=== PATIENT | female | born 1935 | race Caucasian/White ===

== ENCOUNTER → 2016-06-23 | Outpatient (CLI) | payer BC ==
[~2016-06-23] MED LIST: ASPCH81X PO; CALC500C70 PO; CETI10TA84 PO; CHOL1000 PO; GLUC10007 PO; LEVO88TA PO; LISI-461 PO; METO1TAB70 PO; OMEG10007 PO
[2016-06-23 14:28] VITALS: BP 142/74; PULSE 56; TEMP 36.6; O2SAT 96
--- NOTE | 2016-06-23 15:15 | Radiation Oncology Follow-Up ---
Radiation Oncology Follow-Up Date of Visit Jun 23, 2016. (Sarah Lacey PA-C) Reason For Visit One-month follow-up and cancer survivorship care plan (Sarah Lacey PA-C) Radiation Completion Date Had 3 HDR treatments, last one 05-26-2016 (Sarah Lacey PA-C) Diagnosis (1) Endometrial adenocarcinoma Status: Resolved Onset Date: 02/08/2016 Stage: l Permanent Comment: STAGING: FIGO Grade 1, FIGO stage IB TREATMENT: 1. Biopsy - 02/08/2016 - Dr. Darling 2. TAHBSO - 03/03/2016 - Dr. Chow 3. Status post completion of radiation therapy. 3 HDR treatments 700 cGy each. Treatment was completed 05/26/2016 Last Edited By: Sarah Lacey on Jun 10:38 (Sarah Lacey PA-C) History of Present Illness Ms. Vaughan is an 80-year-old female who recently presented with postmenopausal bleeding. She was referred to Dr. Darling who who saw the patient in consultation 02/08/2016 and performed a pelvic examination which is essentially negative. At the time of the visit, Dr. Darling performed an office procedure and did do a endometrial suction curette. 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 The patient was referred to Dr. Chow who did recommend a total abdominal hysterectomy and bilateral salpingo-oophorectomy with pelvic lymph node sampling. The patient went to the operating room on 03/03/2016 for a VERONIKA/BSO and bilateral pelvic lymph node sampling. Pathology revealed endometrioid adenocarcinoma that was FIGO grade 1 and involved more than 50% of the myometrium making it FIGO stage IB. There was no evidence of serosal extension or lymphovascular space invasion. The peritoneal fluid in washings were negative for malignancy. The ovaries and fallopian tubes are also negative. 7 lymph nodes were examined and all of them were negative. The cervix was not involved with cancer. We are now seeing the patient in consultation to discuss the role of adjuvant radiation therapy. Overall, the patient is doing relatively well. She denies any further vaginal bleeding. She has no other complaints. The patient was treated with HDR therapy. She had 3 treatments. He treatment was 700 cGy. Treatment was completed 05/26/2016 (Sarah Lacey PA-C) Interim History She has been doing well over the past month. She denies any changes in urination. She did have intermittent loose bowels during and after treatment. This is steadily improving. She does not require any [id number] medication to help with the loose bowel movements. She has had occasional mild suprapubic discomfort. This has resolved. She had no nausea. She has had no vaginal discharge and no vaginal bleeding. (Sarah Lacey PA-C) Allergies Coded Allergies: Sulfa Drugs (Unverified Allergy, Severe, SEVERE RASH AND SWELLING TO FACE AND EYES, 06/05/09) Tixocortol (Verified Allergy, Severe, RASH, 05/04/16) Aspartame (Unverified Allergy, Mild, 06/05/09) Home Medications Scheduled Aspirin (Aspirin Chewable), 81 MG PO DAILY Calcium/Vitamin D (Os-Michael 500 Plus D), 2 TAB PO DAILY Cetirizine (Zyrtec), 10 MG PO DAILY Cholecalciferol (Vitamin D3), 2 TAB PO DAILY Fish Oil ([place]-3), 1 CAP PO DAILY Glucosamine Sulfate (Glucosamine), 1,000 MG PO DAILY Levothyroxine Sodium (Synthroid), 1 TAB PO DAILY Lisinopril (Zestril), 10 MG PO DAILY Metoprolol Succinate (Toprol Xl), 1 TAB PO DAILY Review of Systems Gastrointestinal: Symptoms: Diarrhea GI Comments: occ diarrhea Oral: Symptoms: No Problems Respiratory: Symptoms: WNL Urinary: Symptoms: Incontinence Comments: "incontinent all the time denies pain or burning " Skin: Symptoms: No Problems (Sarah Lacey PA-C) Physical Exam Vital Signs Date Time Temp Pulse Resp B/P Pulse Ox O2 Delivery O2 Flow Rate FiO2 06/23/16 14:28 36.6 56 20 142/74 96 Pain: Side: Bilateral Patient Pain Scale: 0 - 10 Initial Pain Intensity: 0.0 Fatigue: None General Appearance: no apparent distress Eyes: normal inspection, EOMI ENT: normal ENT inspection, hearing grossly normal Neck: no adenopathy, thyroid normal Respiratory/Chest: lungs clear, no respiratory distress, no accessory muscle use Cardiovascular: regular rate, rhythm, no gallop, no murmur Abdomen: non tender, soft Genitourinary - Female: Deferred is seeing Dr. Chow in 2 weeks. Neurologic/Psychiatric: no motor/sensory deficits, alert, normal mood/affect Skin: warm/dry (Sarah Lacey PA-C) Assessment & Plan Plan: The patient is also seen today by Dr. Zavaleta. She has a follow-up appointment scheduled with Dr. Chow. We previously gave her a vaginal dilator. This was given at the time of her initial pelvic examination. She has been instructed to begin using the vaginal dilator. She should use this twice a week for 10 minutes. We asked her to return to our office in 6 months. Today we completed a cancer survivorship care plan. A copy of the document was given to the patient. She was given a survivorship booklet. She will call our office if she has any questions or concerns in the interim. (Sarah Lacey PA-C) I agree with note created by Sarah Lacey PA-C. I reviewed the patient's chart and information with her. I have examined and evaluated the patient. I reviewed relevant clinical information and answered the patient's and/or family' s questions. (Veeral. Zavaleta MD) Total Time In Follow-Up I spent 20 minutes speaking to the patient performing examination. I spent 20 minutes reviewing information, preparing the survivorship document, and completing this note. (Sarah Lacey PA-C) I spent 15 minutes examining and counseling the patient. (Veeral. Zavaleta MD) Copy To Gadiel Woodard M.D.; Jarvis Chow M.D.; Tee Carranza M.D.
== END | disposition home or self-care (01) ==
LOC: C.ONC 14:18
PROVIDERS: ATTEND Radiology Radiation Oncology
DX: Z08 Encounter for follow-up examination after completed treatment for malignant neoplasm (principal); Z92.3 Personal history of irradiation; Z87.898 Personal history of other specified conditions

== ENCOUNTER → 2016-09-29 | Outpatient (CLI) | payer BC ==
[~2016-09-29] MED LIST changes: +METO-648 PO; -METO1TAB70 PO
--- NOTE | 2016-09-29 16:18 | MAMMOGRAPHY REPORT ---
BILATERAL DIGITAL SCREENING MAMMOGRAM WITH CAD: 09/29/2016 CLINICAL HISTORY: Routine screening. Patient has no complaints. TECHNIQUE: Current study was also evaluated with a Computer Aided Detection (CAD) system. Bilateral CC and MLO views were obtained. COMPARISON: Comparison is made to exams dated: 09/29/2015 mammogram, 09/25/2014 mammogram, 09/24/2013 m ammogram, 09/20/2012 mammogram, 09/20/2011 mammogram, and 09/16/2010 mammogram - [facility] enter. BREAST COMPOSITION: There are scattered areas of fibroglandular density in both breasts. FINDINGS: No suspicious masses, calcifications, or areas of architectural distortion are noted in ei ther breast. There has been no significant interval change compared to prior exams. Bilateral benign appearing calcifications are not significantly changed. IMPRESSION: ACR BI-RADS CATEGORY 2: BENIGN There is no mammographic evidence of malignancy. A 1 year screening mammogram is recommended. The pa tient will receive written notification of the results. Approximately 10% of breast cancers are not detected with mammography. A negative mammographic report should not delay biopsy if a clinically suggestive mass is present. Natalie Kumar M.D. ah/:09/29/2016 14:50:01 Rehabilitation Technician: Sasha SOOD(Henry)(Alina)([place]), [facility] letter sent: Normal 1/2 BI-RADS Code: ACR BI-RADS Category 2: Benign
== END | disposition home or self-care (01) ==
LOC: C.MAMM 13:01
PROVIDERS: ATTEND Family Medicine
DX: Z12.31 Encounter for screening mammogram for malignant neoplasm of breast (principal)

== ENCOUNTER → 2017-01-24 | Outpatient (CLI) | payer BC ==
[~2017-01-24] MED LIST changes: -METO-648 PO; +METO1TAB70 PO
[2017-01-24 13:09] VITALS: BP 140/84; PULSE 59; TEMP 36.6; O2SAT 96
--- NOTE | 2017-01-24 14:12 | Radiation Oncology Follow-Up ---
Radiation Oncology Follow-Up Date of Visit Jan 24, 2017. Reason For Visit 6 month follow-up Radiation Completion Date 05/26/16 HDR Diagnosis (1) Endometrial adenocarcinoma Status: Resolved Onset Date: 02/08/2016 Stage: l Permanent Comment: STAGING: FIGO Grade 1, FIGO stage IB TREATMENT: 1. Biopsy - 02/08/2016 - Dr. Darling 2. TAHBSO - 03/03/2016 - Dr. Chow 3. Status post completion of radiation therapy. 3 HDR treatments 700 cGy each. Treatment was completed 05/26/2016 Last Edited By: Sarah Lacey on Jun 10:38 History of Present Illness Ms. Vaughan is an 80-year-old female who recently presented with postmenopausal bleeding. She was referred to Dr. Darling who who saw the patient in consultation 02/08/2016 and performed a pelvic examination which is essentially negative. At the time of the visit, Dr. Darling performed an office procedure and did do a endometrial suction curette. 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 The patient was referred to Dr. Chow who did recommend a total abdominal hysterectomy and bilateral salpingo-oophorectomy with pelvic lymph node sampling. The patient went to the operating room on 03/03/2016 for a VERONIKA/BSO and bilateral pelvic lymph node sampling. Pathology revealed endometrioid adenocarcinoma that was FIGO grade 1 and involved more than 50% of the myometrium making it FIGO stage IB. There was no evidence of serosal extension or lymphovascular space invasion. The peritoneal fluid in washings were negative for malignancy. The ovaries and fallopian tubes are also negative. 7 lymph nodes were examined and all of them were negative. The cervix was not involved with cancer. We are now seeing the patient in consultation to discuss the role of adjuvant radiation therapy. Overall, the patient is doing relatively well. She denies any further vaginal bleeding. She has no other complaints. The patient was treated with HDR therapy. She had 3 treatments. He treatment was 700 cGy. Treatment was completed 05/26/2016 Interim History She been doing well over the past 6 months. She denies any vaginal discharge or bleeding. She does have an issue with urinary incontinence and chafing. She has a cream prescribed by the media monitor but has not been using this on a regular basis. She denies any pelvic pressure or pain. There is been no change in urinary habits or bowel habits. We discussed follow-up. She had not seen Dr. Chow since July. She stated due to difficulty with transportation and length of travel she did not wish to continue follow-up in [place]. She has not been using the vaginal dilator on a regular basis. Allergies Coded Allergies: Sulfa Drugs (Unverified Allergy, Severe, SEVERE RASH AND SWELLING TO FACE AND EYES, 06/05/09) Tixocortol (Verified Allergy, Severe, RASH, 05/04/16) Aspartame (Unverified Allergy, Mild, 06/05/09) Home Medications Scheduled Aspirin (Aspirin Chewable), 81 MG PO DAILY Calcium/Vitamin D (Os-Michael 500 Plus D), 2 TAB PO DAILY Cetirizine (Zyrtec), 10 MG PO DAILY Cholecalciferol (Vitamin D3), 2 TAB PO DAILY Fish Oil ([place]-3), 1 CAP PO DAILY Glucosamine Sulfate (Glucosamine), 1,000 MG PO DAILY Levothyroxine Sodium (Synthroid), 1 TAB PO DAILY Lisinopril (Zestril), 10 MG PO DAILY Metoprolol Succinate (Toprol Xl), 1 TAB PO DAILY Review of Systems Gastrointestinal: Symptoms: Diarrhea GI Comments: diarrhea intermet feels may be when eats fatty foods Oral: Symptoms: No Problems Respiratory: Symptoms: SOB With Exertion Urinary: Symptoms: Incontinence Comments: urinary incont increased Skin: Symptoms: No Problems Physical Exam Vital Signs Date Time Temp Pulse Resp B/P (MAP) Pulse Ox O2 Delivery O2 Flow Rate FiO2 01/24/17 13:09 36.6 59 20 140/84 96 Pain: Side: Bilateral Patient Pain Scale: 0 - 10 Initial Pain Intensity: 0.0 Fatigue: None General Appearance: no apparent distress Eyes: normal inspection, EOMI ENT: normal ENT inspection, hearing grossly normal Neck: no adenopathy, thyroid normal Respiratory/Chest: lungs clear, no respiratory distress, no accessory muscle use Cardiovascular: regular rate, rhythm, no gallop, no JVD Abdomen: non tender, soft, no organomegaly Genitourinary - Female: There is erythema in the skin folds with chafing at the introitus. There is foreshortening of the vagina with telangiectasia, post radiation changes. There are no visible or palpable lesions of the vagina. Bimanual examination revealed no tenderness. This is difficult to assess due to the large body habitus. Anal / Rectum: Normal sphincter tone. No rectal masses and no rectal bleeding. Neurologic/Psychiatric: no motor/sensory deficits, alert, normal mood/affect Skin: warm/dry Assessment & Plan Plan: I've asked her to continue regular use of the vaginal dilator. She'll use this for 10 minutes twice a week. We'll arrange for her to see a local media monitor in 6 months. We asked her to return to our office in 1 year. She may call if she has any questions or concerns in the interim. Total Time In Follow-Up I spent 20 minutes speaking to the patient performing his examination. I spent 15 minutes reviewing information completing this note. Copy To Juanita Remy D.O.; Tee Carranza M.D.
== END | disposition home or self-care (01) ==
LOC: C.ONC 13:00
PROVIDERS: ATTEND Physician Assistant Medical
DX: Z08 Encounter for follow-up examination after completed treatment for malignant neoplasm (principal); Z92.3 Personal history of irradiation; Z85.42 Personal history of malignant neoplasm of other parts of uterus

== ENCOUNTER 2023-06-07 23:38 | Observation (INO) ==
--- NOTE | 2023-06-08 00:15 | Emergency Department Note ---
History of Present Illness General Chief complaint: Neuro Symptoms/Deficit Stated complaint: SLURRED SPEECH ON AND OFF, FUZZY IN HEAD Time Seen by Provider: 06/08/23 00:03 Source: patient and family History of Present Illness Provider complaint: Slurred speech Onset (ago): hour(s) (1.5) 87-year-old female presents emergency department for slurred speech. Patient [place] any falls. Patient on blood thinners. Patient's symptoms began 1.5 hours ago at 2230 according to family. Home Medications Medication Instructions Recorded Confirmed Type levothyroxine 88 mcg tablet 88 mcg PO QAM 02/22/19 06/08/23 History lisinopril 10 mg tablet 10 mg PO DAILY 02/22/19 06/08/23 History metoprolol succinate 200 mg 50 mg PO DAILY 03/03/22 06/08/23 History tablet,extended release 24 hr amlodipine 2.5 mg tablet 2.5 mg PO DAILY 03/07/23 06/08/23 History cetirizine 10 mg tablet (Zyrtec) 10 mg PO DAILY 06/08/23 06/08/23 History rosuvastatin 10 mg tablet 10 mg PO HS 06/08/23 06/08/23 History spironolactone 25 mg tablet 12.5 mg PO DAILY 06/08/23 06/08/23 History Allergies Allergy/AdvReac Type Severity Reaction Status Date / Time Sulfa (Sulfonamide Allergy Severe SEVERE Verified 06/08/23 01:26 Antibiotics) RASH AND SWELLING TO FACE AND EYES tixocortol Allergy Severe RASH Verified 06/08/23 01:26 aspartame Allergy Unknown Unknown Verified 06/08/23 01:26 Past Med/Surg History Medical History Hypothyroidism Hypertension Family History Other No pertinent family history in first degree relatives Social History Smoking Status: Former smoker Preferred Language: Nigerien Beliefs That Will Affect Care: None Feels Safe at Home: Yes Physical Exam Vital Signs Vital Signs - 24 hr 06/07/23 23:50 06/07/23 23:53 06/08/23 00:36 Temperature 37.0 C Temperature Source Oral Pulse Rate 75 78 Pulse Rate [Apical] 81 Respiratory Rate 16 16 Blood Pressure 161/79 H Blood Pressure [Left Arm] 159/69 H Blood Pressure Mean 106 Blood Pressure Mean [Left Arm] 99 Pulse Oximetry 98 98 Oxygen Delivery Method Room Air Room Air Sepsis Recent Fever Within 48 Hours No Sepsis New/Unexplained Change in Mental Status No Sepsis Action Taken by Nursing No Action Required 06/08/23 01:44 Temperature Temperature Source Pulse Rate Pulse Rate [Apical] 85 Respiratory Rate 18 Blood Pressure Blood Pressure [Left Arm] 167/84 H Blood Pressure Mean Blood Pressure Mean [Left Arm] 111 Pulse Oximetry 98 Oxygen Delivery Method Room Air Sepsis Recent Fever Within 48 Hours Sepsis New/Unexplained Change in Mental Status Sepsis Action Taken by Nursing Physical Exam GENERAL: She is oriented to person, place, and time. She appears well-developed and well-nourished. She does not appear distressed. HENT: Exam performed. -Head: Normocephalic and atraumatic. EYES: Conjunctivae and EOM are normal. Pupils are equal, round, and reactive to light. Right eye exhibits no discharge. Left eye exhibits no discharge. No scleral icterus. NECK: Normal range of motion. Neck supple. No JVD present. CV: Normal rate, regular rhythm, normal heart sounds and intact distal pulses. There is no peripheral edema. Palpable radial pulses bue. PULM/CHEST: Effort normal and breath sounds normal. No respiratory distress. No stridor. She has no wheezes. She has no rales. NEURO: NIHSS: 1 (10:1) Course Course 0003: The patient was evaluated in room B10. A complete history and physical exam was performed Cardiac monitoring: An order was placed for continuous cardiac monitoring. The monitor shows a rate of 80 with sinus rhythm interpreted by me NIHSS: 1. Patient is within the window for TNK and family states that her speech appears different than in the past. Code stroke called. 0020: Spoke with Dr. José Luis Morris telestroke who will evaluate the patient. 0054: Received a call from [employer] saying that the CT of the head and CTA of the head was negative. Received a call from Dr. José Luis Morris telemetry read who states that the patient's symptoms have resolved. She recommends an echo and an MRI and to be watched overnight. Patient will be admitted to the [facility] hospitalist team. Administered Medications Discontinued Medications Ioversol (Optiray 320 125ml) 125 ml IV ONCE ONE Stop: 06/08/23 00:26 Last Admin: 06/08/23 00:25 Dose: 116 ml Documented By: BONNIE Medical Decision Making Laboratory Data Attestation: I reviewed the patient's lab results. 06/08/23 00:17 06/08/23 00:17 Lab Results 06/07/23 06/08/23 06/08/23 Range/Units 23:59 00:17 00:21 WBC 7.23 (4.8-10.8) K/ul RBC 4.01 L (4.20-5.40) M/uL Hgb 12.0 (12.0-16.0) g/dl POC Hgb 11.9 L (12.0-16.0) g/dl Hct 36.2 L (37.0-47.0) % POC Hct 35 L (37-47) % MCV 90.3 (80.0-100.0) fL MCH 29.9 (25.0-34.0) pg MCHC 33.1 (32.0-36.0) g/dL RDW Std Deviation 41.7 (36.4-46.3) fL RDW Coeff of Ajay 12.7 (11.5-14.5) % Plt Count 183 (130-400) K/uL MPV 11.5 (9.4-12.4) fL Immature Gran % (Auto) 0.3 % Neut % (Auto) 54.3 % Lymph % (Auto) 27.7 % Mason % (Auto) 11.8 % Eos % (Auto) 5.5 % Baso % (Auto) 0.4 % Neut # (Auto) 3.93 (1.40-6.50) K/uL Lymph # (Auto) 2.00 (1.20-3.40) K/uL Mason # (Auto) 0.85 H (0.11-0.59) K/uL Eos # (Auto) 0.40 (0.00-0.50) K/uL Baso # (Auto) 0.03 (0.00-0.20) K/uL Immature Gran # (Auto) 0.02 (0.01-0.20) K/uL PT 11.1 (9.0-12.0) Seconds INR 1.0 (0.9-1.1) APTT 29 (21-31) Seconds PTT Ratio 1.0 POC Sodium 142 (135-144) mmol/L Sodium 140 (136-145) mmol/L POC Potassium 4.3 (3.3-5.0) mmol/L Potassium 4.3 (3.5-5.1) mmol/L POC Chloride 106 (101-112) mmol/L Chloride 107 (98-107) mmol/L Carbon Dioxide 23 (21-32) mmol/L POC Total CO2 23 L (24-31) mmol/L Anion Gap 10 (3-11) POC Anion Gap 18.0 (16-25) mmol/L POC BUN 35 H (7-18) mg/dl BUN 39 H (6-23) mg/dl Creatinine 1.23 H (0.6-1.2) mg/dl POC Creatinine 1.2 (0.6-1.3) mg/dl Est Cr Clr Drug Dosing 36.1 ml/min Est GFR ( Amer) 45.0 ml/min Est GFR (Non-Af Amer) 38.9 ml/min BUN/Creatinine Ratio 31.7 H (10-20) Glucose 129 H (70-99(Fasting)) mg/dl POC Glucose 123 H (70-99) mg/dl POC Glucose (other) 132 H (70-99) mg/dl Calcium 9.0 (8.6-10.3) mg/dl POC Ioniz Calcium Trena 1.19 (1.12-1.32) mmol/l Magnesium 1.7 (1.7-2.4) mg/dl Total Bilirubin 0.4 (0.2-1.0) mg/dl AST 14 (13-39) U/L ALT 11 (7-52) U/L Alkaline Phosphatase 44 (34-104) U/L Troponin I High Sens 3.9 (0-14) pg/ml Total Protein 6.9 (6.0-8.3) gm/dl Albumin 4.2 (3.4-5.0) gm/dl Globulin 2.7 (2.5-4.0) gm/dl Albumin/Globulin Ratio 1.6 (0.9-2) Blood Type O Positive Antibody Screen NEGATIVE Imaging Data Radiologist's Impression: Head CT 06/08/23 00:03 CR Exam(s): CT HEAD Without Contrast EXAM: CT Head Without Intravenous Contrast CLINICAL HISTORY: Reason for exam: neuro deficit, acute stroke suspected. TECHNIQUE: Axial computed tomography images of the head/brain without intravenous contrast. CTDI is 37.69 mGy and DLP is 624.41 mGy-cm. Automated exposure control was utilized for the study. A dose lowering technique was utilized adhering to the principles of ALARA. COMPARISON: No relevant prior studies available. FINDINGS: No acute intracranial hemorrhage. No midline shift or mass effect. The territorial [place]-white matter differentiation is maintained throughout. Age-related cerebral volume loss. Periventricular and subcortical white matter hypoattenuation, consistent with chronic microangiopathy. The visualized orbits appear grossly unremarkable. The calvarium is intact. The visualized paranasal sinuses and mastoid air cells are grossly clear. IMPRESSION: No acute intracranial hemorrhage, midline shift, or mass effect. Communications: Call Doctor Stroke Electronically signed by: Jori Aguayo MD 06/08/23 00:50 AM Head CTA 06/08/23 00:03 CR Exam(s): CTA HEAD With Contrast IV Amt: 116 ML OPTIRAY 320 EXAM: CT Angiography Head With Intravenous Contrast CLINICAL HISTORY: Reason for exam: neuro deficit, acute stroke suspected. TECHNIQUE: Axial computed tomographic angiography images of the head with intravenous contrast. CTDI is 29 mGy and DLP is 491 mGy-cm. Automated exposure control was utilized for the study. A dose lowering technique was utilized adhering to the principles of ALARA. MIP reconstructed images were created and reviewed. CONTRAST: Patient received 116 ML OPTIRAY 320 of IV contrast COMPARISON: No relevant prior studies available. FINDINGS: Right internal carotid artery: No acute findings. Intracranial segment is patent with no significant stenosis. No aneurysm. Right anterior cerebral artery: Unremarkable. No occlusion or significant stenosis. No aneurysm. Right middle cerebral artery: Unremarkable. No occlusion or significant stenosis. No aneurysm. Right posterior cerebral artery: Unremarkable. No occlusion or significant stenosis. No aneurysm. Left internal carotid artery: No acute findings. Intracranial segment is patent with no significant stenosis. No aneurysm. Left anterior cerebral artery: Unremarkable. No occlusion or significant stenosis. No aneurysm. Left middle cerebral artery: Unremarkable. No occlusion or significant stenosis. No aneurysm. Left posterior cerebral artery: Unremarkable. No occlusion or significant stenosis. No aneurysm. IMPRESSION: No large vessel occlusion. Communications: Call Doctor Stroke Electronically signed by: Jori Aguayo MD 06/08/23 00:52 AM Neck CTA 06/08/23 00:03 CR Exam(s): CTA NECK With Contrast IV Amt: 116 ML OPTIRAY 320 EXAM: CT Angiography Neck With Intravenous Contrast CLINICAL HISTORY: Reason for exam: neuro deficit, acute stroke suspected. TECHNIQUE: Routine carotid CT angiography protocol was performed with intravenous contrast. NASCET criteria using the distal ICAs for comparison were used for evaluation of stenoses. CTDI is 13.27 mGy and DLP is 491.61 mGy-cm. Automated exposure control was utilized for the study. A dose lowering technique was utilized adhering to the principles of ALARA. MIP reconstructed images were created and reviewed. CONTRAST: Patient received 116 ML OPTIRAY 320 of IV contrast COMPARISON: None. FINDINGS: VASCULATURE: Right common carotid artery: Unremarkable. No occlusion or significant stenosis. No dissection. Right internal carotid artery: Unremarkable. Extracranial segment is patent with no occlusion or significant stenosis. No dissection. Right external carotid artery: Unremarkable. No occlusion. Right vertebral artery: Unremarkable. No occlusion or significant stenosis. No dissection. Left common carotid artery: Unremarkable. No occlusion or significant stenosis. No dissection. Left internal carotid artery: Unremarkable. Extracranial segment is patent with no occlusion or significant stenosis. No dissection. Left external carotid artery: Unremarkable. No occlusion. Left vertebral artery: Unremarkable. No occlusion or significant stenosis. No dissection. NECK: Bones/joints: Moderate to advanced disc degeneration at C4-5, C5-6 and C6-7 with mild spinal canal stenosis at C5-6. Numerous dental caries. Recommend dental consult. No acute fracture. Soft tissues: Prominent mediastinal lymph nodes. Lung apices: Bronchitis, which may be infectious or inflammatory etiologies. CAROTID STENOSIS REFERENCE USING NASCET CRITERIA: % ICA stenosis = (1 - narrowest ICA diameter/diameter of distal cervical ICA) x 100. Mild - <50% stenosis. Moderate - 50-69% stenosis. Severe - 70-94% stenosis. Near occlusion - 95-99% stenosis. Occluded - 100% stenosis. IMPRESSION: Negative CTA neck. Communications: Verify Receipt Call Doctor Stroke Electronically signed by: An Okeefe MD 06/08/23 01:40 AM ECG Data Attestation: I personally reviewed and interpreted this ECG as follows: Rate (beats per minute): 83 Rhythm: + normal sinus ECG Intervals/blocks: + Normal MT and + Normal QT-c ECG ST segments: + Normal ST segments Additional Comments: QRS 84 MDM Narrative 0003: The patient was evaluated in room B10. A complete history and physical exam was performed Cardiac monitoring: An order was placed for continuous cardiac monitoring. The monitor shows a rate of 80 with sinus rhythm interpreted by me NIHSS: 1. Patient is within the window for TNK and family states that her speech appears different than in the past. Code stroke called. 0020: Spoke with Dr. José Luis Morris telestroke who will evaluate the patient. 0054: Received a call from [employer] saying that the CT of the head and CTA of the head was negative. Received a call from Dr. José Luis Morris telemetry read who states that the patient's symptoms have resolved. She recommends an echo and an MRI and to be watched overnight. Patient will be admitted to the [facility] hospitalist team. Impression & Plan Dysarthria, Stroke-like symptoms Discharge Plan Visit Data Chief Complaint: Neuro Symptoms/Deficit Stated Complaint: SLURRED SPEECH ON AND OFF, FUZZY IN HEAD ED Provider: Ash Ayoub Discharge Problem: Dysarthria, Stroke-like symptoms Patient Disposition: Being Evaluated by Hospitalist Forms Stand Alone Forms: My [facility] Prescriptions Prescriptions: No Action amlodipine 2.5 mg tablet 2.5 mg PO DAILY levothyroxine 88 mcg tablet 88 mcg PO QAM lisinopril 10 mg tablet 10 mg PO DAILY metoprolol succinate 200 mg tablet extended release 24 hr 50 mg PO DAILY cetirizine [Zyrtec] 10 mg Tablet 10 mg PO DAILY spironolactone 25 mg tablet 12.5 mg PO DAILY rosuvastatin 10 mg tablet 10 mg PO HS Referrals Referrals: Tee Carranza MD [Primary Care Provider] -
[2023-06-08] MEDS: OPTIRAY 320 125ml IV ONE (00:25)
[2023-06-08 00:34] LABS: iSTAT Creatinine 1.2 mg/dl (0.6-1.3); iSTAT Hemoglobin 11.9 g/dl (12.0-16.0); iSTAT Ionized Calcium 1.19 mmol/l (1.12-1.32); iSTAT Potassium 4.3 mmol/L (3.3-5.0)
[2023-06-08 00:35] LABS: Basophils # (auto) 0.03 K/uL (0.00-0.20); Basophils % (auto) 0.4 %; Eosinophils % (auto) 5.5 %; Hematocrit (blood only) 36.2 % (37.0-47.0); Immature Granulocytes # (auto) 0.02 K/uL (0.01-0.20); Immature Granulocytes % (auto) 0.3 %; Lymphocytes % (auto) 27.7 %; Mean Corpuscular Hemoglobin 29.9 pg (25.0-34.0); Mean Corpuscular Hgb Conc 33.1 g/dL (32.0-36.0); Mean Corpuscular Volume 90.3 fL (80.0-100.0); Mean Platelet Volume 11.5 fL (9.4-12.4); Monocytes # (auto) 0.85 K/uL (0.11-0.59); Monocytes % (auto) 11.8 %; Neutrophils # (auto) 3.93 K/uL (1.40-6.50); Neutrophils % (auto) 54.3 %; Platelet Count 183 K/uL (130-400); RDW Coefficient of Variation 12.7 % (11.5-14.5); RDW Standard Deviation 41.7 fL (36.4-46.3); Red Blood Count 4.01 M/uL (4.20-5.40); White Blood Count 7.23 K/ul (4.8-10.8)
[2023-06-08 00:50] LABS: Albumin Globulin Ratio 1.6 (0.9-2); Albumin Level 4.2 gm/dl (3.4-5.0); BUN Creatinine Ratio 31.7 (10-20); Bilirubin,Total 0.4 mg/dl (0.2-1.0); Creatinine Clr Calc Pharmacy 36.1 ml/min; Est GFR (Non-African American) 38.9 ml/min; Globulin 2.7 gm/dl (2.5-4.0); Magnesium 1.7 mg/dl (1.7-2.4); Potassium 4.3 mmol/L (3.5-5.1); Total Protein 6.9 gm/dl (6.0-8.3)
--- NOTE | 2023-06-08 00:51 | CT Scan Report ---
Exam(s): CT HEAD Without Contrast EXAM: CT Head Without Intravenous Contrast CLINICAL HISTORY: Reason for exam: neuro deficit, acute stroke suspected. TECHNIQUE: Axial computed tomography images of the head/brain without intravenous contrast. CTDI is 37.69 mGy and DLP is 624.41 mGy-cm. Automated exposure control was utilized for the study. A dose lowering technique was utilized adhering to the principles of ALARA. COMPARISON: No relevant prior studies available. FINDINGS: No acute intracranial hemorrhage. No midline shift or mass effect. The territorial [place]-white matter differentiation is maintained throughout. Age-related cerebral volume loss. Periventricular and subcortical white matter hypoattenuation, consistent with chronic microangiopathy. The visualized orbits appear grossly unremarkable. The calvarium is intact. The visualized paranasal sinuses and mastoid air cells are grossly clear. IMPRESSION: No acute intracranial hemorrhage, midline shift, or mass effect. Communications: Call Doctor Stroke Electronically signed by: Jori Aguayo MD 06/08/23 00:50 AM
--- NOTE | 2023-06-08 00:52 | CT Scan Report ---
Exam(s): CTA HEAD With Contrast IV Amt: 116 ML OPTIRAY 320 EXAM: CT Angiography Head With Intravenous Contrast CLINICAL HISTORY: Reason for exam: neuro deficit, acute stroke suspected. TECHNIQUE: Axial computed tomographic angiography images of the head with intravenous contrast. CTDI is 29 mGy and DLP is 491 mGy-cm. Automated exposure control was utilized for the study. A dose lowering technique was utilized adhering to the principles of ALARA. MIP reconstructed images were created and reviewed. CONTRAST: Patient received 116 ML OPTIRAY 320 of IV contrast COMPARISON: No relevant prior studies available. FINDINGS: Right internal carotid artery: No acute findings. Intracranial segment is patent with no significant stenosis. No aneurysm. Right anterior cerebral artery: Unremarkable. No occlusion or significant stenosis. No aneurysm. Right middle cerebral artery: Unremarkable. No occlusion or significant stenosis. No aneurysm. Right posterior cerebral artery: Unremarkable. No occlusion or significant stenosis. No aneurysm. Left internal carotid artery: No acute findings. Intracranial segment is patent with no significant stenosis. No aneurysm. Left anterior cerebral artery: Unremarkable. No occlusion or significant stenosis. No aneurysm. Left middle cerebral artery: Unremarkable. No occlusion or significant stenosis. No aneurysm. Left posterior cerebral artery: Unremarkable. No occlusion or significant stenosis. No aneurysm. IMPRESSION: No large vessel occlusion. Communications: Call Doctor Stroke Electronically signed by: Jori Aguayo MD 06/08/23 00:52 AM
[2023-06-08 00:57] LABS: Troponin I High Sensitivity 3.9 pg/ml (0-14)
[2023-06-08 01:28] LABS: Partial Thromboplastin Time 29 Seconds (21-31); Prothrombin Time 11.1 Seconds (9.0-12.0)
--- NOTE | 2023-06-08 01:41 | CT Scan Report ---
Exam(s): CTA NECK With Contrast IV Amt: 116 ML OPTIRAY 320 EXAM: CT Angiography Neck With Intravenous Contrast CLINICAL HISTORY: Reason for exam: neuro deficit, acute stroke suspected. TECHNIQUE: Routine carotid CT angiography protocol was performed with intravenous contrast. NASCET criteria using the distal ICAs for comparison were used for evaluation of stenoses. CTDI is 13.27 mGy and DLP is 491.61 mGy-cm. Automated exposure control was utilized for the study. A dose lowering technique was utilized adhering to the principles of ALARA. MIP reconstructed images were created and reviewed. CONTRAST: Patient received 116 ML OPTIRAY 320 of IV contrast COMPARISON: None. FINDINGS: VASCULATURE: Right common carotid artery: Unremarkable. No occlusion or significant stenosis. No dissection. Right internal carotid artery: Unremarkable. Extracranial segment is patent with no occlusion or significant stenosis. No dissection. Right external carotid artery: Unremarkable. No occlusion. Right vertebral artery: Unremarkable. No occlusion or significant stenosis. No dissection. Left common carotid artery: Unremarkable. No occlusion or significant stenosis. No dissection. Left internal carotid artery: Unremarkable. Extracranial segment is patent with no occlusion or significant stenosis. No dissection. Left external carotid artery: Unremarkable. No occlusion. Left vertebral artery: Unremarkable. No occlusion or significant stenosis. No dissection. NECK: Bones/joints: Moderate to advanced disc degeneration at C4-5, C5-6 and C6-7 with mild spinal canal stenosis at C5-6. Numerous dental caries. Recommend dental consult. No acute fracture. Soft tissues: Prominent mediastinal lymph nodes. Lung apices: Bronchitis, which may be infectious or inflammatory etiologies. CAROTID STENOSIS REFERENCE USING NASCET CRITERIA: % ICA stenosis = (1 - narrowest ICA diameter/diameter of distal cervical ICA) x 100. Mild - <50% stenosis. Moderate - 50-69% stenosis. Severe - 70-94% stenosis. Near occlusion - 95-99% stenosis. Occluded - 100% stenosis. IMPRESSION: Negative CTA neck. Communications: Verify Receipt Call Doctor Stroke Electronically signed by: An Okeefe MD 06/08/23 01:40 AM
--- NOTE | 2023-06-08 02:20 | History & Physical Report ---
Date of Service June 08, 2023 Assessment & Plan (1) Stroke-like symptoms: (2) Dysarthria: (3) Hyperlipidemia: (4) Hypertension: (5) Hypothyroidism: (6) Endometrial adenocarcinoma: (7) Peripheral arterial disease: (8) Acute kidney injury: Plan Strokelike symptoms/dysarthria/confusion- Patient was evaluated as a stroke alert upon presentation to the ED CT head without contrast negative CTA head and neck negative Symptoms did resolve while in the emergency department [facility] [place] Ordonez advise no TNK due to resolution of symptoms Stroke without TNK order set Order MRI brain without contrast Order complete echocardiogram Aspirin 81 mg every morning Give her usual dose of rosuvastatin 10 mg at bedtime this evening Permissive hypertension, holding lisinopril, spironolactone and amlodipine Check a hemoglobin A1c and fasting lipid panel Consult neurology Acute kidney injury- Creatinine 1.23 on admission, with base 1.03 Holding lisinopril, spironolactone and amlodipine Repeat laboratories in a.m. Peripheral arterial disease left lower extremity- Patient reports that she was started on aspirin and rosuvastatin due to this diagnosis Hypertension- Continue metoprolol succinate 50 mg daily Hold spironolactone, lisinopril and amlodipine as indicated above History of Present Illness Chief Complaint: The patient presents to the emergency department with complaint of slurred speech and mild confusion that began acutely at 1030 this evening, after she awoke from falling asleep in her chair. Primary Care Provider: Tee Carranza MD The patient is an 87-year-old female with a past medical history including endometrial adenocarcinoma, hypertension, allergic rhinitis, hypothyroidism, hypertension, obesity, PAD involving left lower extremity, and hyperlipidemia. She presented to the emergency department about 1-1/2 hours after developing the symptoms of slurred speech and confusion at approximately 1030 this evening after she awoke from falling asleep in her chair. She has not had any previous occurrence of the symptoms. She had not had any associated issues with focal weakness in arms or legs, but she did report some tingling in her extremities briefly. Her symptoms did resolve while in the emergency department, and for that reason, [facility] [place]. Ordonez advised no indication for TNK. Dr. Randolph did request that the patient be admitted to [facility] and have echocardiogram performed an MRI of brain. Allergies Allergy/AdvReac Type Severity Reaction Status Date / Time Sulfa (Sulfonamide Allergy Severe SEVERE Verified 06/08/23 01:26 Antibiotics) RASH AND SWELLING TO FACE AND EYES tixocortol Allergy Severe RASH Verified 06/08/23 01:26 aspartame Allergy Unknown Unknown Verified 06/08/23 01:26 Home Medications Medication Instructions Recorded Confirmed Type levothyroxine 88 mcg tablet 88 mcg PO QAM 02/22/19 06/08/23 History lisinopril 10 mg tablet 10 mg PO DAILY 02/22/19 06/08/23 History metoprolol succinate 200 mg 50 mg PO DAILY 03/03/22 06/08/23 History tablet,extended release 24 hr amlodipine 2.5 mg tablet 2.5 mg PO DAILY 03/07/23 06/08/23 History cetirizine 10 mg tablet (Zyrtec) 10 mg PO DAILY 06/08/23 06/08/23 History rosuvastatin 10 mg tablet 10 mg PO HS 06/08/23 06/08/23 History spironolactone 25 mg tablet 12.5 mg PO DAILY 06/08/23 06/08/23 History Past Med/Surg History Medical History (Updated 06/08/23 @ 04:52 by Jesus Rodriguez MD) Allergic rhinitis Peripheral arterial disease Hyperlipidemia Hypertension Hypothyroidism Family History Other No pertinent family history in first degree relatives Social History Smoking Status: Former smoker Preferred Language: Tristanian Beliefs That Will Affect Care: None Feels Safe at Home: Yes Review of Systems Review of Systems: The patient denies chest pain, palpitations, shortness of breath, dyspnea on exertion, cough, lower extremity swelling, sore throat, fevers, chills, sweats, weight change, nausea, vomiting, diarrhea , constipation, abdominal pain, pelvic pain, blood in urine or stool, dysuria, lightheadedness, dizziness, headache, loss of consciousness, rash, abnormal bruising or bleeding, focal weakness, numbness or tingling in arms or legs, generalized arthralgias or myalgias, back or neck pain, or night sweats. The review of systems is otherwise negative other than for that already noted above, and at least 10 systems have been reviewed. Physical Exam Physical Exam: The patient is awake, alert and oriented 3, well developed and well nourished, normocephalic and atraumatic, lying in bed and in no acute distress. HEENT--PERRL, EOMI, mucous membranes and oropharynx mildly dry. Neck--supple. No JVD. No bruits. Thyroid normal, trachea midline, no adenopathy. Heart--normal S1 and S2. No murmurs, rubs or gallops. Lungs--clear bilaterally, no respiratory distress, no accessory muscle use. Abdomen--normal bowel sounds and soft. Nontender. Nondistended. Obese with BMI 44.0 Extremities--no cyanosis or clubbing. No edema. Dermatologic--normal skin turgor, normal color, no abnormal lymph nodes, no rash. Neurologic--cranial nerves II through XII grossly intact. Rheumatologic--normal range of motion. Psychiatric--normal affect. Results & Data Results & Data Vital Signs (Past 12 Hours) Vital Signs Temp Pulse Pulse Resp BP BP Pulse Ox 06/08/23 01:44 85 18 167/84 H 98 06/08/23 00:36 81 16 159/69 H 98 06/07/23 23:53 78 06/07/23 23:50 37.0 C 75 16 161/79 H 98 O2 Del Method 06/08/23 01:44 Room Air 06/08/23 00:36 Room Air 06/07/23 23:53 06/07/23 23:50 Room Air Laboratory Results Laboratory Results WBC 7.23 K/ul (4.8-10.8) 06/08/23 00:17 RBC 4.01 M/uL (4.20-5.40) L 06/08/23 00:17 Hgb 12.0 g/dl (12.0-16.0) 06/08/23 00:17 POC Hgb 11.9 g/dl (12.0-16.0) L 06/08/23 00:21 Hct 36.2 % (37.0-47.0) L 06/08/23 00:17 POC Hct 35 % (37-47) L 06/08/23 00:21 MCV 90.3 fL (80.0-100.0) 06/08/23 00:17 MCH 29.9 pg (25.0-34.0) 06/08/23 00:17 MCHC 33.1 g/dL (32.0-36.0) 06/08/23 00:17 RDW Std Deviation 41.7 fL (36.4-46.3) 06/08/23 00:17 RDW Coeff of Ajay 12.7 % (11.5-14.5) 06/08/23 00:17 Plt Count 183 K/uL (130-400) 06/08/23 00:17 MPV 11.5 fL (9.4-12.4) 06/08/23 00:17 Immature Gran % (Auto) 0.3 % 06/08/23 00:17 Neut % (Auto) 54.3 % 06/08/23 00:17 Lymph % (Auto) 27.7 % 06/08/23 00:17 [place] % (Auto) 11.8 % 06/08/23 00:17 Eos % (Auto) 5.5 % 06/08/23 00:17 Baso % (Auto) 0.4 % 06/08/23 00:17 Neut # (Auto) 3.93 K/uL (1.40-6.50) 06/08/23 00:17 Lymph # (Auto) 2.00 K/uL (1.20-3.40) 06/08/23 00:17 [place] # (Auto) 0.85 K/uL (0.11-0.59) H 06/08/23 00:17 Eos # (Auto) 0.40 K/uL (0.00-0.50) 06/08/23 00:17 Baso # (Auto) 0.03 K/uL (0.00-0.20) 06/08/23 00:17 Immature Gran # (Auto) 0.02 K/uL (0.01-0.20) 06/08/23 00:17 PT 11.1 Seconds (9.0-12.0) 06/08/23 00:17 INR 1.0 (0.9-1.1) 06/08/23 00:17 APTT 29 Seconds (21-31) 06/08/23 00:17 PTT Ratio 1.0 06/08/23 00:17 POC Sodium 142 mmol/L (135-144) 06/08/23 00:21 Sodium 140 mmol/L (136-145) 06/08/23 00:17 POC Potassium 4.3 mmol/L (3.3-5.0) 06/08/23 00:21 Potassium 4.3 mmol/L (3.5-5.1) 06/08/23 00:17 POC Chloride 106 mmol/L (101-112) 06/08/23 00:21 Chloride 107 mmol/L (98-107) 06/08/23 00:17 Carbon Dioxide 23 mmol/L (21-32) 06/08/23 00:17 POC Total CO2 23 mmol/L (24-31) L 06/08/23 00:21 Anion Gap 10 (3-11) 06/08/23 00:17 POC Anion Gap 18.0 mmol/L (16-25) 06/08/23 00:21 POC BUN 35 mg/dl (7-18) H 06/08/23 00:21 BUN 39 mg/dl (6-23) H 06/08/23 00:17 Creatinine 1.23 mg/dl (0.6-1.2) H 06/08/23 00:17 POC Creatinine 1.2 mg/dl (0.6-1.3) 06/08/23 00:21 Est Cr Clr Drug Dosing 36.1 ml/min 06/08/23 00:17 Est GFR ( Amer) 45.0 ml/min 06/08/23 00:17 Est GFR (Non-Af Amer) 38.9 ml/min 06/08/23 00:17 BUN/Creatinine Ratio 31.7 (10-20) H 06/08/23 00:17 Glucose 129 mg/dl (70-99(Fasting)) H 06/08/23 00:17 POC Glucose 123 mg/dl (70-99) H 06/07/23 23:59 POC Glucose (other) 132 mg/dl (70-99) H 06/08/23 00:21 Calcium 9.0 mg/dl (8.6-10.3) 06/08/23 00:17 POC Ioniz Calcium Trena 1.19 mmol/l (1.12-1.32) 06/08/23 00:21 Magnesium 1.7 mg/dl (1.7-2.4) 06/08/23 00:17 Total Bilirubin 0.4 mg/dl (0.2-1.0) 06/08/23 00:17 AST 14 U/L (13-39) 06/08/23 00:17 ALT 11 U/L (7-52) 06/08/23 00:17 Alkaline Phosphatase 44 U/L (34-104) 06/08/23 00:17 Troponin I High Sens 3.9 pg/ml (0-14) 06/08/23 00:17 Total Protein 6.9 gm/dl (6.0-8.3) 06/08/23 00:17 Albumin 4.2 gm/dl (3.4-5.0) 06/08/23 00:17 Globulin 2.7 gm/dl (2.5-4.0) 06/08/23 00:17 Albumin/Globulin Ratio 1.6 (0.9-2) 06/08/23 00:17 Blood Type O Positive 06/08/23 00:17 Antibody Screen NEGATIVE 06/08/23 00:[address] 06/08/23 00:03 CR Exam(s): CT HEAD Without Contrast EXAM: CT Head Without Intravenous Contrast CLINICAL HISTORY: Reason for exam: neuro deficit, acute stroke suspected. TECHNIQUE: Axial computed tomography images of the head/brain without intravenous contrast. CTDI is 37.69 mGy and DLP is 624.41 mGy-cm. Automated exposure control was utilized for the study. A dose lowering technique was utilized adhering to the principles of ALARA. COMPARISON: No relevant prior studies available. FINDINGS: No acute intracranial hemorrhage. No midline shift or mass effect. The [place]-white matter differentiation is maintained throughout. Age-related cerebral volume loss. Periventricular and subcortical white matter hypoattenuation, consistent with chronic microangiopathy. The visualized orbits appear grossly unremarkable. The calvarium is intact. The visualized paranasal sinuses and mastoid air cells are grossly clear. IMPRESSION: No acute intracranial hemorrhage, midline shift, or mass effect. Communications: Call Doctor Stroke Electronically signed by: Jori Aguayo MD 06/08/23 00:50 AM Head CTA 06/08/23 00:03 CR Exam(s): CTA HEAD With Contrast IV Amt: 116 ML OPTIRAY 320 EXAM: CT Angiography Head With Intravenous Contrast CLINICAL HISTORY: Reason for exam: neuro deficit, acute stroke suspected. TECHNIQUE: Axial computed tomographic angiography images of the head with intravenous contrast. CTDI is 29 mGy and DLP is 491 mGy-cm. Automated exposure control was utilized for the study. A dose lowering technique was utilized adhering to the principles of ALARA. MIP reconstructed images were created and reviewed. CONTRAST: Patient received 116 ML OPTIRAY 320 of IV contrast COMPARISON: No relevant prior studies available. FINDINGS: Right internal carotid artery: No acute findings. Intracranial segment is patent with no significant stenosis. No aneurysm. Right anterior cerebral artery: Unremarkable. No occlusion or significant stenosis. No aneurysm. Right middle cerebral artery: Unremarkable. No occlusion or significant stenosis. No aneurysm. Right posterior cerebral artery: Unremarkable. No occlusion or significant stenosis. No aneurysm. Left internal carotid artery: No acute findings. Intracranial segment is patent with no significant stenosis. No aneurysm. Left anterior cerebral artery: Unremarkable. No occlusion or significant stenosis. No aneurysm. Left middle cerebral artery: Unremarkable. No occlusion or significant stenosis. No aneurysm. Left posterior cerebral artery: Unremarkable. No occlusion or significant stenosis. No aneurysm. IMPRESSION: No large vessel occlusion. Communications: Call Doctor Stroke Electronically signed by: Jori Aguayo MD 06/08/23 00:52 AM Neck CTA 06/08/23 00:03 CR Exam(s): CTA NECK With Contrast IV Amt: 116 ML OPTIRAY 320 EXAM: CT Angiography Neck With Intravenous Contrast CLINICAL HISTORY: Reason for exam: neuro deficit, acute stroke suspected. TECHNIQUE: Routine carotid CT angiography protocol was performed with intravenous contrast. NASCET criteria using the distal ICAs for comparison were used for evaluation of stenoses. CTDI is 13.27 mGy and DLP is 491.61 mGy-cm. Automated exposure control was utilized for the study. A dose lowering technique was utilized adhering to the principles of ALARA. MIP reconstructed images were created and reviewed. CONTRAST: Patient received 116 ML OPTIRAY 320 of IV contrast COMPARISON: None. FINDINGS: VASCULATURE: Right common carotid artery: Unremarkable. No occlusion or significant stenosis. No dissection. Right internal carotid artery: Unremarkable. Extracranial segment is patent with no occlusion or significant stenosis. No dissection. Right external carotid artery: Unremarkable. No occlusion. Right vertebral artery: Unremarkable. No occlusion or significant stenosis. No dissection. Left common carotid artery: Unremarkable. No occlusion or significant stenosis. No dissection. Left internal carotid artery: Unremarkable. Extracranial segment is patent with no occlusion or significant stenosis. No dissection. Left external carotid artery: Unremarkable. No occlusion. Left vertebral artery: Unremarkable. No occlusion or significant stenosis. No dissection. NECK: Bones/joints: Moderate to advanced disc degeneration at C4-5, C5-6 and C6-7 with mild spinal canal stenosis at C5-6. Numerous dental caries. Recommend dental consult. No acute fracture. Soft tissues: Prominent mediastinal lymph nodes. Lung apices: Bronchitis, which may be infectious or inflammatory etiologies. CAROTID STENOSIS REFERENCE USING NASCET CRITERIA: % ICA stenosis = (1 - narrowest ICA diameter/diameter of distal cervical ICA) x 100. Mild - <50% stenosis. Moderate - 50-69% stenosis. Severe - 70-94% stenosis. Near occlusion - 95-99% stenosis. Occluded - 100% stenosis. IMPRESSION: Negative CTA neck. Communications: Verify Receipt Call Doctor Stroke Electronically signed by: An Okeefe MD 06/08/23 01:40 AM Code Status & VTE Plan Code Status Full code VTE Prophylaxis Plan VTE Prophylaxis will be ordered: Yes PG Care Time/CCT Total # of Minutes Spent Total Time Spent with Patient: Total time spent is greater than 50% in coordination of care (as documented) at patient's floor/unit and/or counseling patient: Coding Level of Care Code 89800 INT INP/OBS CARE 3/75MIN Diagnoses Stroke-like symptoms R29.90 Dysarthria R47.1 Hyperlipidemia E78.5 Hypertension I10 Hypertension type: unspecified Hypothyroidism E03.9 Endometrial adenocarcinoma C54.1 Peripheral arterial disease I73.9 Acute kidney injury N17.9 (4) Hypertension Hypertension type: unspecified Qualified Code(s): I10 - Essential (primary) hypertension
[2023-06-08] MEDS ORDERED: ONDANSETRON INJ 2 MG/ML 2 ML VIAL IV PRN (02:29)
[2023-06-08] MEDS ORDERED: PHARMACIST DISCHARGE MED REC CONSULT PRN (02:29)
[2023-06-08] MEDS ORDERED: ACETAMINOPHEN 325 MG TAB PO PRN (02:29)
[2023-06-08] MEDS: ROSUVASTATIN CALCIUM 10 MG TAB PO STA (03:31)
--- NOTE | 2023-06-08 05:18 | Magnetic Resonance Report ---
Exam(s): MRI HEAD Without Contrast EXAM: MR Head Without Intravenous Contrast CLINICAL HISTORY: Reason for exam: tIA. TECHNIQUE: Magnetic resonance images of the head/brain without intravenous contrast in multiple planes. COMPARISON: Comparison made to prior noncontrast head CT from June 08, 2023. FINDINGS: Brain: Tiny remote ischemic injuries of the right cerebellum. Mild nonspecific white matter changes. The flow voids at the base of the brain are intact. No mass. No hemorrhage. No acute infarct. Greater fissure cyst. Ventricles: Unremarkable. No ventriculomegaly. Bones/joints: Unremarkable. No acute fracture. There is a T2 bright and T1 dark lesion on the superficial right parotid gland measuring 17.8 x 14.4 x 14.2 mm. Sinuses: Unremarkable as visualized. No acute sinusitis. Mastoid air cells: Unremarkable as visualized. No mastoid effusion. Orbits: Bilateral lens replacements. IMPRESSION: No evidence of acute intracranial pathology. 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 Recommend carotid ultrasound for further evaluation. Electronically signed by: An Okeefe MD 06/08/23 05:18 AM
[2023-06-08] MEDS: LEVOTHYROXINE SODIUM 88 MCG TABLET PO SCH (06:19)
[2023-06-08] MEDS: HEPARIN SOD 5,000 UNIT/0.5 ML VIAL SQ SCH (06:21)
[2023-06-08 06:59] LABS: Albumin Level 3.9 gm/dl (3.4-5.0); BUN Creatinine Ratio 29.9 (10-20); Calcium 8.7 mg/dl (8.6-10.3); Chol HDL Ratio 2.8 (0-5); Creatinine Clr Calc Pharmacy 41.4 ml/min; Est GFR (African American) 53.3 ml/min; Phosphorus 3.3 mg/dl (2.5-4.9); Potassium 4.1 mmol/L (3.5-5.1)
[2023-06-08 07:05] LABS: Troponin I High Sensitivity 6.5 pg/ml (0-14)
[2023-06-08 07:07] LABS: Basophils # (auto) 0.06 K/uL (0.00-0.20); Basophils % (auto) 0.8 %; Eosinophils # (auto) 0.34 K/uL (0.00-0.50); Eosinophils % (auto) 4.3 %; Hematocrit (blood only) 34.3 % (37.0-47.0); Hemoglobin 11.4 g/dl (12.0-16.0); Immature Granulocytes # (auto) 0.03 K/uL (0.01-0.20); Immature Granulocytes % (auto) 0.4 %; Mean Corpuscular Hemoglobin 30.1 pg (25.0-34.0); Mean Corpuscular Hgb Conc 33.2 g/dL (32.0-36.0); Mean Corpuscular Volume 90.5 fL (80.0-100.0); Mean Platelet Volume 11.9 fL (9.4-12.4); Monocytes # (auto) 0.83 K/uL (0.11-0.59); Monocytes % (auto) 10.5 %; Neutrophils # (auto) 4.36 K/uL (1.40-6.50); Platelet Count 172 K/uL (130-400); RDW Coefficient of Variation 12.6 % (11.5-14.5); RDW Standard Deviation 41.7 fL (36.4-46.3); Red Blood Count 3.79 M/uL (4.20-5.40); White Blood Count 7.92 K/ul (4.8-10.8)
--- NOTE | 2023-06-08 07:13 | XRay Report ---
SINGLE VIEW CHEST CLINICAL HISTORY: Neurological deficit. Stroke like symptoms FINDINGS: An AP, portable, upright chest radiograph is compared to study dated 02/22/2019. The heart is enlarged measuring atherosclerotic calcification of the thoracic aorta. The pulmonary vasculature is noncongested. Chronic interstitial thickening is similar to previous. There is bibasilar scarring/ atelectasis. No airspace consolidation or large pleural effusion is identified. No pneumothorax is se en. The skeletal structures are osteopenic. The bony thorax is grossly intact. IMPRESSION: Cardiomegaly with no acute cardiopulmonary abnormality identified. ACT 112: Negative or not required by law. Electronically signed by: Corby Greer M.D. 06/08/2023 7:11 AM
--- NOTE | 2023-06-08 07:22 | Hospitalist Progress Note ---
Date of Service June 08, 2023 Assessment & Plan (1) Stroke-like symptoms: (2) Dysarthria: (3) Hyperlipidemia: (4) Hypertension: (5) Hypothyroidism: (6) Endometrial adenocarcinoma: (7) Peripheral arterial disease: (8) Acute kidney injury: Plan Strokelike symptoms/dysarthria/confusion- Patient was evaluated as a stroke alert upon presentation to the ED CT head without contrast negative CTA head and neck negative Symptoms did resolve while in the emergency department [facility] [place] Ordonez advise no TNK due to resolution of symptoms Stroke without TNK order set Order MRI brain without contrast Order complete echocardiogram Aspirin 81 mg every morning Give her usual dose of rosuvastatin 10 mg at bedtime this evening Permissive hypertension, holding lisinopril, spironolactone and amlodipine Check a hemoglobin A1c and fasting lipid panel Consult neurology Acute kidney injury- Creatinine 1.23 on admission, with base 1.03 Holding lisinopril, spironolactone and amlodipine Repeat laboratories in a.m. Peripheral arterial disease left lower extremity- Patient reports that she was started on aspirin and rosuvastatin due to this diagnosis Hypertension- Continue metoprolol succinate 50 mg daily Hold spironolactone, lisinopril and amlodipine as indicated above Admission and Anticipated Discharge Date Admission Date: June 08, 2023 Subjective Pt states that symptoms have resolved. Did note weakness, confusion and dysarthria. States that she lives in an apartment with grandchildren. Review of Systems Review of Systems: As per above Physical Exam Physical Exam: Constitutional: well-appearing, no acute distress HEENT: NCAT, no conjunctival injection CV: regular rhythm, no murmur appreciated, extremities well-perfused, no LE ed mehul Resp: CTABL, no wheezes/rales/rhonchi appreciated, no increased work of breathing GI: soft, nondistended, nontender, BS normoactive MSK: no gross deformities appreciated Skin: warm, dry, no rash appreciated Neuro: alert, oriented, no focal neurologic deficit appreciated Results & Data Results & Data Vital Signs (Past 12 Hours) Vital Signs Temp Pulse Pulse Resp BP BP Pulse Ox 06/08/23 07:05 98 H 06/08/23 03:00 80 15 99 06/08/23 02:01 73 20 139/65 98 06/08/23 01:44 85 18 167/84 H 98 06/08/23 00:36 81 16 159/69 H 98 06/07/23 23:53 78 06/07/23 23:50 37.0 C 75 16 161/79 H 98 O2 Del Method 06/08/23 07:05 06/08/23 03:00 Room Air 06/08/23 02:01 Room Air 06/08/23 01:44 Room Air 06/08/23 00:36 Room Air 06/07/23 23:53 06/07/23 23:50 Room Air (4) Hypertension Hypertension type: unspecified Qualified Code(s): I10 - Essential (primary) hypertension
[2023-06-08 07:33] LABS: Estimated Average Glucose 123 mg/dl; Hemoglobin A1C 5.9 % (4.5-5.6)
[2023-06-08] MEDS: ASPIRIN 81 MG ECTAB PO SCH (08:04)
[2023-06-08] MEDS: CETIRIZINE HCL 10 MG TABLET PO SCH (08:04)
[2023-06-08] MEDS: METOPROLOL SUCC 50MG EXT REL TAB PO SCH (08:05)
--- NOTE | 2023-06-08 08:15 | Electrocardiogram Report ---
Test Reason : Blood Pressure : / mmHG Vent. Rate : 083 BPM Atrial Rate : 083 BPM P-R Int : 182 ms QRS Dur : 074 ms QT Int : 408 ms P-R-T Axes : 017 014 052 degrees QTc Int : 479 ms Normal sinus rhythm Low voltage QRS Possible Old Anterior infarct (cited on or before 22-FEB-2019) Abnormal ECG When compared with ECG of 22-FEB-2019 14:42, No significant change Confirmed by Fan Ureña ([id number]) on 06/08/2023 8:15:32 AM Referred By: REFERRED SELF Confirmed By:Fan Ureña
--- NOTE | 2023-06-08 08:27 | XCELERA ---
[id number] \\[id number]
--- OUTSIDE RECORDS SUMMARY | 2023-06-08 09:02 | External Medical Summary | Continuity of Care Document ---
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 [address], [address] [place] [address] [phone] Encounter Diagnosis Lower extremity pain(Discharge Diagnosis) - 04/10/23 Edema(Discharge Diagnosis) - 04/10/23 HTN (hypertension)(Discharge Diagnosis) - 04/10/23 Discharge Disposition: Home or Self Care Attending Physician: ЕКАТЕРИНА Lackey Sarah A Referring Physician: ЕКАТЕРИНА Lackey Sarah A Allergies, Adverse Reactions, Alerts Substance Reaction Severity Status thimerosal topical contact Active Allergy Not found in Search Tixocortol-2 1-pivalate, contact symptoms Active Lipitor swwelling Active hydrochlorothiazide-triamterene facial edema Moderate Active sulfa drugs rash, hives Active Lasix Rash Active Assessment and Plan Extracted from: Title:Cardiology Office Visit Note Author:ЕКАТЕРИНА De La [address], Sarah A Date:04/10/23 PAST MEDICAL HISTORY: 1. Mild to moderate aortic stenosis with mild aortic insufficiency. 2. Mild mitral stenosis secondary to mitral calcification with mild mitral regurgitation. 3. Hyperdynamic left ventricular systolic function with an EF greater than 70%. 4. Chronic shortness of breath, which is likely multifactorial. 5. Hypertension. 6. Obesity. Ms. Vaughan's edema has improved since resuming the spironolactone. She does look a little dry on her lab work but we will likely have to accept some mild decrease in her kidney function to keep her from holding onto fluid. Her lower extremities are painful when up in bed but not when dependent. This may be due to arterial disease. She probably does not walk enough in the day to incite claudication symptoms. I will have her get LE arterial dopplers. Certainly, at 87 I would not want to send her for any kind of invasive intervention but if she has significant PAD we could be more aggressive with medications. Her blood pressure is controlled [facility] Immunizations Given and Recorded Vaccine Date Status Refusal Reason influenza virus vaccine, inactivated 12/21/19 Nick rded influenza virus vaccine, inactivated 02/12/19 Nick rded influenza virus vaccine, inactivated 01/24/18 Give n influenza virus vaccine, inactivated 01/13/16 Give n influenza virus vaccine, inactivated 01/12/15 Give n influenza virus vaccine, inactivated 04/17/13 Nick rded tetanus/diphtheria/pertuss, acel (Tdap) 05/30/14 G iven pneumococcal 13-valent vaccine 05/30/14 Given zoster vaccine live 06/27/11 Recorded tetanus toxoids-diphtheria, Td (Adult) 05/20/11 Gi yared pneumococcal 23-valent vaccine 08/13/02 Recorded Medications amLODIPine 2.5 mg oral tablet Start: 03/13/23 8:41:00 EST, 1 tab, PO, Daily, Disp# 90 tab, Refills: 2, Pharmacy: [id number] Start Date: 03/13/23 Status: Ordered Caltrate 600 with D Start: 05/24/10 14:23:09, See Instructions, Refills: 0, 2 tab PO Daily, current medication from another provider Start Date: 05/24/10 Status: Ordered cetirizine 10 mg oral tablet Start: 01/11/22 13:42:00 EDT, 1 tab, PO, Daily, PRN: as needed for allergy symptoms Start Date: 01/11/22 Status: Ordered Glucosamine & Chondroitin with MSM Start: 05/24/10 14:23:00, See Instructions, Refills: 0, 2 Tabs Daily No Dosage Noted, current medication from another provider Start Date: 05/24/10 Status: Ordered levothyroxine 88 mcg (0.088 mg) oral tablet Start: 07/04/22 13:21:00 EST, See Instructions, Disp# 90 tab, Refills: 3, TAKE ONE TABLET BY MOUTH DAILY, Pharmacy: [id number] Start Date: 07/04/22 Status: Ordered lisinopril 10 mg oral tablet Start: 07/04/22 13:21:00 EST, See Instructions, Disp# 90 tab, Refills: 3, TAKE ONE TABLET BY MOUTH DAILY, Pharmacy: [id number] Start Date: 07/04/22 Status: Ordered magnesium oxide 400 mg (241.3 mg elemental magnesium) oral tablet Start: 12/27/22 13:03:00 EDT, 1 tab, PO, Daily, Disp# 30 tab, Refills: 11, Pharmacy: [id number] Start Date: 12/27/22 Status: Ordered metoprolol succinate 50 mg oral tablet, extended release Start: 12/26/22 15:26:00 EDT, 1 tab, PO, Daily, Disp# 90 tab, Refills: 3, Pharmacy: [id number] Start Date: 12/26/22 Status: Ordered spironolactone 25 mg oral tablet Start: 03/08/23 15:05:00 EST, 0.5 tab, PO, Daily, Disp# 15 tab, Refills: 3, Pharmacy: [id number] Start Date: 03/08/23 Status: Ordered triamcinolone 0.1% topical cream Start: 11/12/20 16:17:00 EDT, 1 appl, topical, bid, Disp# 80 g, Refills: 1, Pharmacy: [id number] Start Date: 11/12/20 Status: Ordered Vitamin D3 Start: 05/24/10 14:23:34, 1999 Int_Unit =, PO, Daily, Refills: 0, current medication from another provider Start Date: 05/24/10 Status: Ordered Mental Status 04/10/23 Barriers to Learning one year None evide nt Mandatory Health Literacy Documentation Yes Health Literacy Communication Barriers N ever Primary Language Fijian Problem List Condition Confirmation Course Effective Dates Status H ealth Status Informant ALLERGIC RHINITIS Confirmed Active Aortic stenosis Confirmed Active CATARACT Confirmed Active Colonoscopy 1 Confirmed Active DIVERTICULA OF COLON Confirmed Active EDEMA Confirmed Active Gout Confirmed Active Hearing loss Confirmed Active Hyperlipidemia Confirmed Active HYPERTENSION Confirmed Active Hypothyroidism Confirmed Active Impaired fasting glucose Confirmed Active Endometrial cancer 2, 3 Confirmed Active Mass of right parotid gland 4, 5 Confirmed 02/22/19 Active Microscopic hematuria 6 Confirmed Active Morbid obesity Confirmed Active Obesity (BMI 30.0-39.9) Confirmed Active Osteopenia Confirmed Active Finger pain Confirmed Active Post-menopausal Confirmed Active VITAMIN D DEFICIENCY Confirmed Active Weight disorder Confirmed Active 1normal colonoscopy at age 68 2sees oncology and [employer] yearly 3s/p VERONIKA-BSO 03/2016 and RXT x 3 4neck US in 09/2019: no significant change in the indeteterminate 16mm cystic right parotid mass which contains a 7mm mural nodule comapred to 03/2019 US 5T scan in 01/2019 in ER showed 1.7cm nodule. Neck US in 03/2019 showed cyst and stable comapred to CT scan. Radiologist recommended no biopsy and f/u in 6 months with US. 6Saw Dr. Zarate - guanaco negative urological evaluation Diagnosis Diagnosis Type Effective Dates Health Status Cl inical Service Informant HTN (hypertension) Discharge Diagnosis 04/10/23 Non-Specified Lower extremity pain Discharge Diagnosis 04/10/23 Non-Specified Edema Discharge Diagnosis 04/10/23 Non-Specified Procedures Procedure Date Related Diagnosis Body Site Status X-ray of left knee 1 12/05/22 Comp leted Mammogram 2 04/21/21 Completed Bone density scan 3 03/11/21 Compl eted Mammogram - screening 4 01/17/20 C ompleted US scan of head 5, 6 02/28/19 Comp leted Bone density finding 7 12/27/18 Co mpleted Mammogram 8 10/04/18 Completed Mammogram - screening 9 10/02/17 C ompleted Mammogram - screening 10 09/29/16 Completed VERONIKA BSO - Total abdominal hy sterectomy and bilateral salpingo-oophorectomy 03/22/16 Completed Abdominal hysterectomy 03/03/16 Co mpleted CXR - Chest X-ray 11 02/19/16 Comp leted Genitourinary examination fi nding 12, 13 02/08/16 Completed DEXA - Dual energy X-ray norma ton absorptiometry 14 01/29/16 Completed Fibula and tibia (left) 2 views 15 01/26/16 Completed Mammogram - screening 16 09/29/[address] of abdomen and pelvis 17 10/02/14 Completed Mammogram - screening 18 09/25/14 Completed Bone scan 7/23/14 Completed Mammogram - screening 19 09/24/13 Completed Cataract 20 Completed ear surgery for ear drum 21 Completed Tonsillectomy and adenoidectomy Completed 1IMPRESSION: 1.No fracture or dislocation within the left knee. 2.Mild to moderate osteoarthritis most pronounced at the medial compartment. 2IMPRESSION:ACR BI - RADS CATEGORY 1: NEGATIVE There is no mammographic evidence of malignancy. A 1 year screening mammogram is recommended (04-22-2022). The patient will receive written notification of the results. 3AP Spine T score -1.6 Femur Neck Left T score -1.4 Femur Neck Right T score -1.5 Femur total left T score of -0.4 Femur Total right T score -0.8 Z score 0.3 Follow up 2022. 4There is no mammographic evidence of malignancy. A 1 year screening mammogram is recommended. The patient will receive written notification of the results. 5IMPRESSION: A 1.9 x 1.2x 0.9 cm right parotid gland cystic lesion. 6Addendum: seen in US department for possible US guided bx/fine needle aspiration. The images on 02/28/2019 were reviewed with the patient. The cystic nature of this lesion was confirmed on US today. The appearance and size were unchanged. No internal vascularitiy on color Doppler. This is compatible with a cyst. No solid componenbt to target for biopsy. No suspicious features. It was agreed that this could be followed clinically or at most followed with a 6-12 month ultrasound. The patient was amenable to this plan. 7-1.9 osteopenia AP Spine -0.4 normal dual femur 8IMPRESSION: ACR BI-RADS CATEGORY 2: BENIGN There is no mammographic evidence of malignancy. A 1 year screening mammogram is recommended. 9There is no mammographic evidence of malignancy. A 1 year screening mammogram is recommended. The patient will receive written notification of the results. 10There is no mammographic evidence of malignancy. A 1 year screening mammogram is recommended. The patient will receive written notification of the results. 11Negative chest. 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 16There is no mammographic evidence of malignancy. A 1 year screening mammogram is recommended. the patient will erceive written notification of the results. 171) no suspicious filling defects seen within the opacified portions of the B/L renal collecting systems, ureters or bladder 2) A punctate nonobstructing stone within the right kidney. No left renal calculi. There is no hydronephrosis 3) Small hiatus hernia 4) Colonic diverticulosis. No evidence for diverticulitis 5) Healing right anterior 5th rib fracture 18Impression: There is no mammographic evidence of malignancy. A 1 yr screening mammogram is recommended. The patient will receive written notification of the results. 191 yr screening is recommended 20B/L removal [id number] Vital Signs Most recent to oldest [Reference Range]: 1 Patient Weight 102 kg (04/10/23 1:46 PM) Temperature [36.5-37.9 DegC] 36.6 DegC (04/10/23 1:46 PM) Heart Rate 74 bpm (04/10/23 1:46 PM) Respiratory Rate 20 br/min (04/10/23 1:46 PM) Blood Pressure 136/64mmHg (04/10/23 1:46 PM) Cuff Pulse Pressure 72 mmHg (04/10/23 1:46 PM) BP Location # 1 Left Arm, Manual (04/10/23 1:46 PM) Social History Social History Type Response Tobacco Former smoker 1 Smoking Status Never smoked cigaret rosa Sex Female 1Quit in 60's. Only smoked "lightly" Cardiology Outpatient Note * ЕКАТЕРИНА Lackey Sarah A: PERFORM Event Display: Cardiology Outpt Note Authored Date: Primary Care Provider MD Carranza Juan Referring Provider ЕКАТЕРИНА Lackey Sarah A Chief Complaint 1 month follow up LE edema History of Present Illness Ms. Vaughan presents for follow up of her history of mild to moderate aortic stenosis, hyperdynamic left ventricular systolic function, chronic dyspnea on exertion, which is multifactorial, hypertension, and obesity. Her weight is down 3.6 kgsince re-starting thespironolactone. No sob or chest pain. She does have lower extremity pain in bed at night. She does not experience lower extremity painduring the day. Review of Systems All other systems reviewed and negative except as discussed in the HPI Physical Exam Vitals & Measurements T:36.6C HR:74(Monitored) RR:20 BP:136/64 SpO2:99% WT:102kg WT:102.000kg(Dosing) Physical Examination General: Alert and oriented, No acute distress. Respiratory: Lungs are clear to auscultation, Respirations are non-labored. Cardiovascular: Normal rate, Regular rhythm,3/6 rusb systolicmurmur, No edema, . Integumentary: Warm, Dry, Echo Neurologic: Alert, Oriented. Cognition and Speech: Speech clear and coherent. Psychiatric: Cooperative, Appropriate mood & affect. Assessment/Plan PAST MEDICAL HISTORY: 1. Mild to moderate aortic stenosis with mild aortic insufficiency. 2. Mild mitral stenosis secondary to mitral calcification with mild mitral regurgitation. 3. Hyperdynamic left ventricular systolic function with an EF greater than 70%. 4. Chronic shortness of breath, which is likely multifactorial. 5. Hypertension. 6. Obesity. Ms. Conners edema has improved since resuming the spironolactone. She does look a little dry on herlab work but we will likely have to accept some mild decrease in her kidney function to keep her from holding onto fluid. Her lower extremities are painful when up in bed but not when dependent. This may be due to arterial disease. She probably does not walk enough in the day to incite claudication symptoms. I will have her get LE arterial dopplers. Certainly, at 87 I would not want to send her for any kind of invasive intervention but if she has significant PAD we could be more aggressive with medications. Her blood pressure is controlled [facility] Problem List/Past Medical History Ongoing ALLERGIC RHINITIS Aortic stenosis CATARACT Colonoscopy DIVERTICULA OF COLON EDEMA Endometrial cancer Finger pain Gout Hearing loss Hyperlipidemia HYPERTENSION Hypothyroidism Impaired fasting glucose Mass of right parotid gland Microscopic hematuria Morbid obesity Obesity (BMI 30.0-39.9) Osteopenia Post-menopausal VITAMIN D DEFICIENCY Weight disorder Historical PLANTAR FASCIAL FIBROMATOSIS SHINGLES Procedure/Surgical History X-ray of left knee (12/05/2022)Mammogram (04/21/2021)Bone density scan (03/11/2021)Mammogram - screening (01/17/2020)US scan of head (02/28/2019)Bone density finding (12/27/2018)Mammogram (10/04/2018)Mammogram - screening (10/02/2017)Mammogram - screening (09/29/2016)[facility] BSO - Total abdominal hysterectomy and bilateral salpingo- oophorectomy (03/22/2016)Abdominal hysterectomy (03/03/2016)CXR - Chest X- ray (02/19/2016)Genitourinary examination finding (02/08/2016)DEXA - Dual energy X-ray photon absorptiometry (01/29/2016)Fibula and tibia (left) 2 view s (01/26/2016)Mammogram - screening (09/29/2015)CT of abdomen and pelvis (10/02/2014)Mammogram - screening (09/25/2014)Bone scan (11/20/2013)Mammogram - screening (09/24/2013)ear surgery for ear drumCataractTonsillectomy and adenoidectomy Medications amLODIPine(amLODIPine 2.5 mg oral tablet), 1 tab, PO, Daily calcium and vitamin D combination(Caltrate 600 with D), See Instructions cetirizine(cetirizine 10 mg oral tablet), 10 mg= 1 tab, PO, Daily, PRN cholecalciferol(Vitamin D3), 2000 Int_Unit, PO, Daily chondroitin/glucosamine/methylsulfonylmethane(Glucosamine & Chondroitin with MSM), See Instructions levothyroxine(levothyroxine 88 mcg (0.088 mg) oral tablet), See Instructions, 3 refills lisinopril(lisinopril 10 mg oral tablet), See Instructions, 3 refills magnesium oxide(magnesium oxide 400 mg (241.3 mg elemental magnesium) oral tablet), 400 mg= 1 tab, PO, Daily, 11 refills metoprolol(metoprolol succinate 50 mg oral tablet, extended release), 50 mg= 1 tab, PO, Daily, 3 refills spironolactone(spironolactone 25 mg oral tablet), 12.5 mg= 0.5 tab, PO, Daily, 3 refills triamcinolone topical(triamcinolone 0.1% topical cream), 1 appl, topical, bid, 1 refills Allergies hydrochlorothiazide-triamterene (Moderate)facial edema Allergy Not found in [id number], contact symptoms LasixRash Lipitorswwelling sulfa drugsrash, hives thimerosal topicalcontact Social History Smoking Status Never smoked cigarettes Alcohol - Denies Alcohol Use 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 Only smoked "lightly" Family History Alzheimer disease: Mother. COPD: Brother. Diabetes: Brother. Heart attack: Son. High Blood Pressure: Mother and Father. Lung cancer..: Father. Health Status Family Member(s) Electronic Signature on File CC: Tee Carranza MD [address] [place] [id number] Electronically Reviewed/Signed by: ЕКАТЕРИНА Forman Author Signature Dt/Tm:04/10/2023 03:14 PM [facility] Patient Care team information Care Team Personnel Name: MD Carranza Juan Position: Physician - Family Med Member Role: Primary Care Provider Address: Address: [address] [place] [id number] [place] Care Team Related Persons Name: KIET VAUGHAN Address: home [address], [place] [id number]
--- OUTSIDE RECORDS SUMMARY | 2023-06-08 09:02 | External Medical Summary | Continuity of Care Document ---
Author Name Unknown Organization [facility] [address] [facility] Address [address] [place], [place] [id number] Care Team Providers Care Biomedical Analytical Scientist Name Role Phone Tee Carranza Primary Care Physician [phone] [facility]counter [facility] [id number] Date(s): 03/08/23 - 03/08/23 [facility] [address], [address] [place] [address] [phone] Encounter Diagnosis Diastolic CHF(Discharge Diagnosis) - 03/08/23 Aortic stenosis(Discharge Diagnosis) - 03/08/23 Edema(Discharge Diagnosis) - 03/08/23 Chronic kidney disease(Discharge Diagnosis) - 03/08/23 Discharge Disposition: Home or Self Care Attending Physician: ЕКАТЕРИНА Lackey Sarah A Allergies, Adverse Reactions, Alerts Substance Reaction Severity Status thimerosal topical contact Active hydrochlorothiazide-triamterene facial edema Moderate Active sulfa drugs rash, hives Active Lasix Rash Active Lipitor swwelling Active Allergy Not found in Search Tixocortol-2 1-pivalate, contact symptoms Active Assessment and Plan Extracted from: Title:Cardiology Office Visit Note Author:ЕКАТЕРИНА De La [address], Sarah A Date:03/08/23 PAST MEDICAL HISTORY: 1. Mild to moderate aortic stenosis with mild aortic insufficiency. 2. Mild mitral stenosis secondary to mitral calcification with mild mitral regurgitation. 3. Hyperdynamic left ventricular systolic function with an EF greater than 70%. 4. Chronic shortness of breath, which is likely multifactorial. 5. Hypertension. 6. Obesity. Ms. Vaughan will restart her spironolactone at 12.5 mg daily. I did encourage her to drink more water with this. We may have to accept a small reduction in her kidney function in order to keep her frombecomingfluid overloaded.I would also like her to have another echocardiogram as its been a year since her lastto assess for any worseningvalvulopathythat could be contributing. She will have lab work eliana week. 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 She takes ibuprofen for this. I did discuss with her that ibuprofen is hard on her kidneys can drive up her blood pressure. If she is taking it more thanoccasionally she needs to discuss with her primary care provider. She will return to the clinic in a month Immunizations Given and Recorded Vaccine Date Status [...] Medications amLODIPine 2.5 mg oral tablet Start: 03/30/22 15:00:00 EST, 1 tab, PO, Daily, Disp# 90 tab, Refills: 3, Pharmacy: [id number] Start Date: 03/30/22 Status: Ordered Caltrate 600 with D Start: [...] TAKE ONE TABLET BY MOUTH DAILY, Pharmacy: [id number] Start Date: 07/04/22 Status: Ordered lisinopril 10 mg oral tablet Start: 07/04/22 13:21:00 EST, See Instructions, Disp# 90 tab, Refills: 3, TAKE ONE TABLET BY MOUTH DAILY, Pharmacy: [id number] Start Date: 07/04/22 Status: Ordered magnesium oxide 400 mg (241.3 mg elemental magnesium) oral tablet Start: 12/27/22 13:03:00 EDT, 1 tab, PO, Daily, Disp# 30 tab, Refills: 11, Pharmacy: [facility] Start Date: 12/27/22 Status: Ordered metoprolol succinate 50 mg oral tablet, extended release Start: 12/26/22 15:26:00 EDT, 1 tab, PO, Daily, Disp# 90 tab, Refills: 3, Pharmacy: [facility] Start Date: 12/26/22 Status: Ordered spironolactone 25 mg oral tablet Start: 03/08/23 15:05:00 EST, 0.5 tab, PO, Daily, Disp# 15 tab, Refills: 3, Pharmacy: [facility] Start Date: 03/08/23 Status: Ordered triamcinolone 0.1% topical cream Start: 11/12/20 16:17:00 EDT, 1 appl, topical, bid, Disp# 80 g, Refills: 1, Pharmacy: [id number] Start Date: 11/12/20 Status: Ordered Vitamin D3 Start: 05/24/10 14:23:34, 1999 Int_Unit =, PO, Daily, Refills: 0, current medication from another provider Start Date: 05/24/10 Status: Ordered Mental Status 03/08/23 Barriers to Learning one year None evide nt Mandatory Health Literacy Documentation Yes Health Literacy Communication Barriers N ever Primary Language Amharic Problem List Condition Confirmation Course Effective Dates [...] 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 6Saw Dr. Elliot mathew negative urological evaluation Diagnosis Diagnosis Type Effective Dates Health Status Cl inical Service Informant Diastolic CHF Discharge Diagnosis 03/08/23 Non-Specified Aortic stenosis Discharge Diagnosis 03/08/23 Non-Specified Edema Discharge Diagnosis 03/08/23 Non-Specified Chronic kidney disease Discharge Diagnosis 03/08/23 Non-Specified Procedures Procedure Date Related Diagnosis Body [...] - screening 18 09/25/14 Completed Bone scan 11/20/13 Completed Mammogram - screening 19 09/24/13 Completed [...] score -0.8 Z score 0.3 Follow up Novem2022. 4There is no mammographic evidence of malignancy. [...] 191 yr screening is recommended 20B/L removal [id number] Vital Signs Most recent to oldest [Reference Range]: 1 Patient Weight 105.6 kg (03/08/23 2:45 PM) Heart Rate 72 bpm (03/08/23 2:45 PM) Respiratory Rate 18 br/min (03/08/23 2:45 PM) Blood Pressure 138/82mmHg (03/08/23 2:45 PM) BP Location # 1 Right Arm (03/08/23 2:45 PM) Social History Social History Type Response Tobacco Former smoker 1 Smoking Status Never smoked cigaret rosa Sex Female 1Quit in 60's. Only smoked "lightly" Cardiology Outpatient Note * ЕКАТЕРИНА Lackey Sarah A: PERFORM Event Display: Cardiology Outpt Note Authored Date: [id number] Primary Care Provider MD Carranza Juan Chief Complaint Lower extremity edema - denies chest pain/ tightness, Palpitations, or heart racing, fatigue or SOB denies dizziness or lightheadedness, no edema History of Present Illness Ms. Vaughan presents for follow up of edema. Shehas been experiencing worsening lower extremity edema since stopping her diuretic in November. At the time she was taken off due toapparent dehydration on her lab work. She is not short of breath. She is not orthopneic. No chest discomfort. She notes that she has been trying to maintain a low-sodium diet. Review of Systems All other systems reviewed and negative except as discussed in the HPI Physical Exam Vitals & Measurements HR:72(Monitored) RR:18 BP:138/82 SpO2:96% WT:105.600kg(Dosing) WT:105.6kg Physical Examination General: Alert and oriented, No acute distress. Neck: No jugular venous distention. Respiratory: Lungs are clear to auscultation, Respirations are non-labored. Cardiovascular: Normal rate, Regular rhythm,3/6 lusb systolicmurmur, No edema. Integumentary: Warm, Dry, Mulat Neurologic: Alert, Oriented. Cognition and Speech: Speech [...] likely multifactorial. 5. Hypertension. 6. Obesity. Ms. Vaughan will restart her spironolactone at 12.5 mg daily. I did encourage her to drink more water with this. We may have to accept a small reduction in her kidney function in order to keep her frombecomingfluid overloaded.I would also like her to have another echocardiogram as its been a year since her lastto assess for any worseningvalvulopathythat could be contributing. She will have lab work eliana week. 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 She takes ibuprofen for this. I did discuss with her that ibuprofen is hard on her kidneys can drive up her blood pressure. If she is taking it more thanoccasionally she needs to discuss with her primary care provider. She will return to the clinic in a month Problem List/Past Medical History Ongoing ALLERGIC RHINITIS [...] (12/27/2018)Mammogram (10/04/2018)Mammogram - screening (10/02/2017)Mammogram - screening (09/29/2016)[facility] - Total abdominal hysterectomy and bilateral salpingo- oophorectomy (03/22/2016)Abdominal hysterectomy (03/03/2016)CXR - Chest X- ray (02/19/2016)Genitourinary examination finding (02/08/2016)DEXA - Dual energy X-ray photon absorptiometry (01/29/2016)Fibula and tibia (left) 2 view s (01/26/2016)Mammogram - screening (09/29/2015)CT of abdomen and pelvis (10/02/2014)Mammogram - screening (09/25/2014)Bone scan (11/20/2013)Mammogram - screening (09/24/2013)ear surgery for ear drumCataractTonsillectomy and adenoidectomy Medications amLODIPine(amLODIPine 2.5 mg oral tablet), 2.5 mg= 1 tab, PO, Daily, 3 refills calcium and vitamin D combination(Caltrate 600 with [...] hydrochlorothiazide-triamterene (Moderate)facial edema Allergy Not found in [id number], contact symptoms LasixRash Lipitorswwelling sulfa drugsrash, hives [...] Signature on File CC: Tee Carranza MD [address] [place] [id number] Electronically Reviewed/Signed by: ЕКАТЕРИНА Forman Author Signature Dt/Tm:03/08/2023 04:47 PM [facility] Patient Care team information Care Team Personnel Name: MD Carranza Juan Position: Physician - Family Med Member Role: Primary Care Provider Address: Address: [address] [place] [id number] [place] Care Team Related Persons Name: KIET VAUGHAN Address: home [address], [place] [id number]
--- OUTSIDE RECORDS SUMMARY | 2023-06-08 09:02 | External Medical Summary | Continuity of Care Document ---
Author Name Unknown Organization [address] [place] Address [address] [place], [place] [id number] Care Team Providers Care Web Merchandiser Name Role Phone Tee Carranza Primary Care Physician [phone] Encounter [facility] [id number] Date(s): 04/18/23 - 04/18/[address], [address] [place] [address] [phone] Encounter Diagnosis PAD (peripheral artery disease)(Discharge Diagnosis) - 04/19/23 Discharge Disposition: Home or Self Care Attending Physician: ЕКАТЕРИНА Lackey Sarah A Referring Physician: ЕКАТЕРИНА Lackey Sarah A Allergies, Adverse Reactions, Alerts Substance Reaction Severity Status thimerosal topical contact Active Allergy Not found in Search Tixocortol-2 1-pivalate, contact symptoms Active hydrochlorothiazide-triamterene facial edema Moderate Active sulfa drugs rash, hives Active Lasix Rash Active Lipitor swwelling Active Immunizations Given and Recorded Vaccine Date Status [...] Daily, Disp# 90 tab, Refills: 2, Pharmacy: [facility] Start Date: 03/13/23 Status: Ordered aspirin 81 mg oral delayed release tablet Start: 04/19/23 13:36:00 EST, 1 tab, PO, Daily, Disp# 90 tab, Refills: 3, may use OTC, Pharmacy: [facility] Start Date: 04/19/23 Status: Ordered Caltrate 600 with D Start: [...] TAKE ONE TABLET BY MOUTH DAILY, Pharmacy: [facility] Start Date: 07/04/22 Status: Ordered lisinopril 10 mg oral tablet Start: 07/04/22 13:21:00 EST, See Instructions, Disp# 90 tab, Refills: 3, TAKE ONE TABLET BY MOUTH DAILY, Pharmacy: [facility] Start Date: 07/04/22 Status: Ordered magnesium oxide 400 mg (241.3 mg elemental magnesium) oral tablet Start: 12/27/22 13:03:00 EDT, 1 tab, PO, Daily, Disp# 30 tab, Refills: 11, Pharmacy: [facility] Start Date: 12/27/22 Status: Ordered metoprolol succinate 50 mg oral tablet, extended release Start: 12/26/22 15:26:00 EDT, 1 tab, PO, Daily, Disp# 90 tab, Refills: 3, Pharmacy: [facility] Start Date: 12/26/22 Status: Ordered rosuvastatin 10 mg oral tablet Start: 04/19/23 13:21:00 EST, 1 tab, PO, qhs, Disp# 90 tab, Refills: 3, Pharmacy: [facility] Start Date: 04/19/23 Status: Ordered spironolactone 25 mg oral tablet Start: 03/08/23 15:05:00 EST, 0.5 tab, PO, Daily, Disp# 15 tab, Refills: 3, Pharmacy: [facility] Start Date: 03/08/23 Status: Ordered triamcinolone 0.1% topical cream Start: 11/12/20 16:17:00 EDT, 1 appl, topical, bid, Disp# 80 g, Refills: 1, Pharmacy: [id number] Start Date: 11/12/20 Status: Ordered Vitamin D3 Start: 05/24/10 14:23:34, 1999 Int_Unit =, PO, Daily, Refills: 0, current medication from another provider Start Date: 05/24/10 Status: Ordered Problem List Condition Confirmation Course Effective Dates [...] 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 VERONIKA-BSO 03/2016 and RXT x [...] Dates Health Status Cl inical Service Informant PAD (peripheral artery disease) Discharge Diagnosis 04/19/23 Non-Specified Procedures Procedure Date Related Diagnosis Body [...] 191 yr screening is recommended 20B/L removal [id number] Results Radiology Reports * Exam Date Time Procedure Performing Provider Status 04/18/23 2:07 PM VL Lower Ext Arterial Duplex Bilatera Lynne Saez; Final Notes: (VL Lower Ext Arterial Duplex Bilateral) Reason For Exam: lower extremity pain VL Lower Ext Arterial Duplex Bilateral [facility] FINAL REPORT Name: GAMALIEL MCNEIL : 1935 Visit: [id number] Date: 18 Apr 2023 TYPE OF TEST: Extremity Arterial Duplex REASON FOR TEST Lower extremity pain INTERPRETATION/FINDINGS Arterial duplex imaging performed of the bilateral lower extremities: *Technically challenging exam due to patient body habitus. RIGHT LE. No hemodynamically significant stenosis identified in the distal external iliac, common femoral, proximal profunda femoris, superficial femoral, popliteal, posterior tibial or anterior tibial arteries. 2. Unable to visualize the proximal peroneal artery due to vessel depth. The mid and distal peroneal artery appears patent with no evidence of stenosis. 3. Unable to visualize the tibioperoneal trunk due to vessel depth. 4. Unable to obtain the right ankle/brachial index due to intolerance to cuff pressure. LEFT LE. 50-74% stenosis of the mid superficial femoral artery. 2. No hemodynamically significant stenosis identified in the distal external iliac, common femoral, proximal profunda femoris, proximal or distal superficial femoral, popliteal, peroneal or anterior tibial arteries. 3. Occlusion of the distal posterior tibial artery. 4. Unable to visualize the left tibioperoneal trunk due to vessel depth. 5. Unable to obtain the left ankle/brachial index due to intolerance to cuff pressure. No previous studies available for comparison. IMPRESSION/COMMENTS I have personally reviewed the data relevant to the interpretation of this study. TECHNOLOGIST: Lynne Carvalho, CARLY, RVT PHYSICIAN: Christopher Toure M.D. Signed: 04/19/2023 08:48 AM Final Dictated by:MD Toure Eugene J Dictated DT/TM:04/19/2023 8:48 Signed by:MD Toure Eugene J Signed (Electronic Signature):04/19/2023 8:48 a Transcribed by:HEATHER Social History Social History Type Response Tobacco Former smoker 1 Smoking Status Never smoked cigaret rosa Sex Female 1Quit in 60's. Only smoked "lightly" Patient Care team information Care Team Personnel Name: MD Carranza Juan Position: Physician - Family Med Member Role: Primary Care Provider Address: Address: [address] [place] [address], [place] [address] Care Team Related Persons Name: KIET MCNEIL Address: home [address] [facility], [place] [id number]
--- NOTE | 2023-06-08 10:54 | Neurology Consultation ---
Date of Consultation June 08, 2023 Assessment & Plan (1) TIA (transient ischemic attack): Plan 87-year-old female presenting with probable TIA characterized by dysarthria, confusion, feeling of generalized weakness, improved and route to the emergency department, resolved this morning. Patient did not require TNKase. She has had an unremarkable imaging evaluation including CT of the head, CTA of the head and neck, and brain MRI. Stroke risk factors for this patient include hyperlipidemia and hypertension. She also has a history of peripheral arterial disease. This TIA occurs while on aspirin 81 mg/day for the past 5 weeks. Given that this episode occurred while the patient had been taking daily low- dose aspirin, and again, without evidence of acute stroke on MRI, I would recommend switching from aspirin to clopidogrel 75 mg/day. Would not recommend short-term treatment with dual antiplatelet therapy in this context. May continue with Crestor at the current dosage, her LDL is appropriate, less than 70. Continue management of hypertension per protocol. Consider obtaining 30-day mobile cardiac outpatient telemetry. Patient should follow-up with her PCP for ongoing monitoring of hypertension and other cardiovascular risk factors. Does not require additional outpatient neurology follow-up. Please call me with any questions. History of Present Illness Reason for Consultation: TIA Requesting Physician: Michael Attending Physician: Francesca Bernard MD History of Present Illness The patient is an 87-year-old female who awoke from a brief nap in her chair last night with slurred speech. She was also a little confused and felt generally weak. She lives with her son. EMS was summoned. She reports that she was able to stand and walk to the [facility]. Her symptoms significantly improved and route to the emergency department. She denies experiencing any associated change in vision or focal weakness or sensory loss during this episode. She denies a prior history of stroke or TIA. This morning, her symptoms have completely resolved. She did have a telestroke consultation, NIH stroke scale score was 1. She has been taking baby aspirin for about the past 5 weeks. She is not on any anticoagulant. A CT of the head including CTA of the head and neck were unremarkable, no vascular lesion or thrombosis identified, no hemorrhage or acute process. Given her minimal deficits and improvement, TNKase was not administered. She has had a follow-up brain MRI. This study was also negative for acute stroke or other acute process. 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 Patient is aware of this history and indicates this finding has been present before and has been considered stable. Past medical history is also notable for endometrial adenocarcinoma, hypertension, hyperlipidemia, hypothyroidism, peripheral arterial disease of the left lower limb, bilateral cataract removal. Allergies Allergy/AdvReac Type Severity Reaction Status Date / Time Sulfa (Sulfonamide Allergy Severe SEVERE Verified 06/08/23 01:26 Antibiotics) RASH AND SWELLING TO FACE AND EYES tixocortol Allergy Severe RASH Verified 06/08/23 01:26 aspartame Allergy Unknown Unknown Verified 06/08/23 01:26 Home Medications Medication Instructions Recorded Confirmed Type levothyroxine 88 mcg tablet 88 mcg PO QAM 02/22/19 06/08/23 History lisinopril 10 mg tablet 10 mg PO DAILY 02/22/19 06/08/23 History metoprolol succinate 200 mg 50 mg PO DAILY 03/03/22 06/08/23 History tablet,extended release 24 hr amlodipine 2.5 mg tablet 2.5 mg PO DAILY 03/07/23 06/08/23 History cetirizine 10 mg tablet (Zyrtec) 10 mg PO DAILY 06/08/23 06/08/23 History rosuvastatin 10 mg tablet 10 mg PO HS 06/08/23 06/08/23 History spironolactone 25 mg tablet 12.5 mg PO DAILY 06/08/23 06/08/23 History Patient History Medical History Allergic rhinitis Peripheral arterial disease Hyperlipidemia Hypertension Hypothyroidism Family History Other No pertinent family history in first degree relatives Social History Smoking Status: Never smoker Hx Alcohol Use: No Hx Substance Use: No Preferred Language: Italian Communication Ability: Effective Gun Welder Required: No Beliefs That Will Affect Care: None Current Living Situation Comment: Lives with grandson Other Information That Helps Us Care for You: No Feels Safe at Home: Yes Safety Concerns: Feels Safe At This Time Assistive Devices: Cane and Walker Review of Systems Constitutional: no fever and no chills Eyes: no blind spots and no diplopia Ear, Nose, Mouth, Throat: + hearing loss (Chronic) Respiratory: no cough and no dyspnea Cardiovascular: no chest pain and no palpitations Gastrointestinal: no nausea and no vomiting Genitourinary: no dysuria Musculoskeletal: no neck pain and no myalgia Integumentary: no rash and no lesions Neurologic: as per Subjective / HPI and + abnormal speech; no localized weakness, no loss of sensation, no tremor(s), no headache(s), no confusion and no memory loss Psychiatric: no depression and no anxiety Hematologic / Lymphatic: no easy bleeding and no easy bruising Exam (Neuro) Constitutional: well developed and well nourished; no acute distress Eyes: normal visual stephenson by confrontation, EOM intact bilaterally, + anisocoria (Left pupil larger than right, both pupils round and reactive to light) and + nystagmus; + no PERRL Neurologic: Oriented to:: Person, Place and Time Memory: Short Term Intact and Remote Intact Attention: Span Intact and Concentration Intact Speech Fluency: negative Dysarthria or Dysfluency Speech Aphasia: negative Aphasia Fund of Knowledge: Current Events, Past History and Vocabulary Cranial N erves: Normal II, III, IV, , V, VII, IX, X, XI and XII; Abnorm VIII Motor Strength: Normal Lower Extremities and Normal Upper Extremities Motor Tone: Normal Lower Extremities and Normal Upper Extremities Muscle Bulk/Involuntary Movements: No Involuntary Movements; negative Muscle Atrophy Sensation: Light Touch Intact, Pain/Temperature Intact, Vibration Intact and Proprioception Intact Coordination: Normal; negative Dysdiadochokinesia, Finger-Nose Abnormal or Heel-Barry Abnormal Deep Tendon Reflexes: Rt Triceps: 1+, Lt Triceps: 1+, Rt Biceps: 1+, Lt Biceps: 1+, Rt Brachioradialis: 1+, Lt Brachioradialis: 1+, Rt Patellar: 1+, Lt Patellar: 1+, Rt Ankle: 1+ and Lt Ankle: 1+ Special Tests: negative Babinski Present Details: Gait not tested Results & Data Vital Signs (Past 12 Hours) Vital Signs Temp Pulse Pulse Resp BP BP Pulse Ox 06/08/23 07:05 98 H 06/08/23 07:00 110 H 22 157/87 H 97 06/08/23 03:00 80 15 99 06/08/23 02:01 73 20 139/65 98 06/08/23 01:44 85 18 167/84 H 98 06/08/23 00:36 81 16 159/69 H 98 06/07/23 23:53 78 06/07/23 23:50 37.0 C 75 16 161/79 H 98 O2 Del Method 06/08/23 07:05 06/08/23 07:00 Room Air 06/08/23 03:00 Room Air 06/08/23 02:01 Room Air 06/08/23 01:44 Room Air 06/08/23 00:36 Room Air 06/07/23 23:53 06/07/23 23:50 Room Air Laboratory Results WBC 7.92, hemoglobin 11.4, hematocrit 34.3, platelet count 172, sodium 140, potassium 4.1, BUN 32, creatinine 1.07, glucose 102, hemoglobin A1c 5.9, calcium 8.7, magnesium 1.7, AST 14, ALT 11, triglycerides 85, cholesterol 108, LDL 52, HDL [address] of the head, CTA of the head and neck, and brain MRI are as described in the HPI, I independently reviewed these images. Echocardiogram completed today was negative for intra-arterial shunt, normal left ventricular systolic function, EF 60 to 65%, normal left ventricular wall motion, left atrium mildly dilated. Coding Level of Care Code 79677 INT INP/OBS CARE MIN Diagnoses TIA (transient ischemic attack) G45.9 Time Spent (min) 80 Comment Total time includes patient contact, chart review, counseling, note preparation
--- NOTE | 2023-06-08 14:15 | Pharmacy Report ---
- Date of Service June 08, 2023 - Pharmacy CVA/TIA Medication Review Medications to Prevent Stroke handout has been added to the patients discharge packet. Antiplatelet(s) * Clopidogrel 75mg daily Cholesterol * Rosuvastatin 10 mg daily * High intensity statin deferred due to current LDL level below 70mg/dL on this dosage (per recs of Neurology consult) DVT Prophylaxis * SCD knee Therapeutic Anticoagulation * No history of Afib/Aflutter noted Type 2 Diabetes * Patient does not have T2DM
--- NOTE | 2023-06-08 14:42 | Discharge Summary ---
Date of Service June 08, 2023 Admission HPI Per Admitting Provider The patient is an 87-year-old female with a past medical history including endometrial adenocarcinoma, hypertension, allergic rhinitis, hypothyroidism, hypertension, obesity, PAD involving left lower extremity, and hyperlipidemia. She presented to the emergency department about 1-1/2 hours after developing the symptoms of slurred speech and confusion at approximately 1030 this evening after she awoke from falling asleep in her chair. She has not had any previous occurrence of the symptoms. She had not had any associated issues with focal weakness in arms or legs, but she did report some tingling in her extremities briefly. Her symptoms did resolve while in the emergency department, and for that reason, [facility] [place]. Ordonez advised no indication for TNK. Dr. Randolph did request that the patient be admitted to [facility] and have echocardiogram performed an MRI of brain. Principal Diagnosis TIA Discharge Exam Constitutional: well-appearing, no acute distress HEENT: NCAT, no conjunctival injection CV: regular rhythm, no murmur appreciated, extremities well-perfused, no LE edema Resp: CTABL, no wheezes/rales/rhonchi appreciated, no increased work of breathing GI: soft, nondistended, nontender, BS normoactive MSK: no gross deformities appreciated Skin: warm, dry, no rash appreciated Neuro: alert, oriented, no focal neurologic deficit appreciated Discharge Data Allergies Allergy/AdvReac Type Severity Reaction Status Date / Time Sulfa (Sulfonamide Allergy Severe SEVERE Verified 06/08/23 01:26 Antibiotics) RASH AND SWELLING TO FACE AND EYES tixocortol Allergy Severe RASH Verified 06/08/23 01:26 aspartame Allergy Unknown Unknown Verified 06/08/23 01:26 Consultations 06/08/23 01:10 ED Decision to Admit Stat 06/08/23 02:29 Consult Neurology Routine Ordered Studies 06/08/23 00:03 CT angio head w con Stat CT angio neck with con Stat CT head/brain wo con Stat 06/08/23 02:29 MR brain wo con Urgent Hospital Course (1) TIA (transient ischemic attack): - Presenting with symptoms consistent with TIA, symptoms resolved - Imaging without acute findings; CT head, CTA head/neck, Brain MRI - TTE with EF= 60-65%, no interarterial shunt - Was seen by neurology - Plan to switch for aspirin to clopidogrel, no indication for DAPT - continue statin - consider Holter monitor as an OP (2) Dysarthria: As per above (3) Hyperlipidemia: - Continue stain, repeat lipid panel with LDL= 52, total cholesterol= 108 (4) Hypertension: - Continue amlodipine, metoprolol, lisinopril, hold spironolactone pending PCP f/u and repeat BMP (5) Hypothyroidism: - continue levothyroxine (6) Endometrial adenocarcinoma: - noted history follows with oncology (7) Peripheral arterial disease: - continue statin, switch aspirin to plavix (8) Acute kidney injury: - Creatine up to 1.23, back down to 1.07 prior to d/c - repeat BMP at PCP f/u (9) Parotid mass: - noted on MRI Brain; 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 Recommend carotid ultrasound for further evaluation. - upon review has been followed with US - will need f/u US as an outpatient Total Time Total Time Spent Total Time Spent (In Minutes): see attending attestation Discharge Plan Discharge Items Patient Disposition: Home - Self-Care Reason For Visit: TIA, DYSARTHRIA Discharge Diagnosis: TIA Activity: Per Instructions section Non-emergency contact: Primary Care Provider Call non-emergency contact if: you have any medication questions and your symptoms worsen Follow-up/Referrals: Tee Carranza MD [Primary Care Provider] - Diet: Regular Addtl Attending Provider Instructions: You were admitted for a TIA, transient ischemic stroke. You were seen by the neurologist and they recommend the following: - Switching from aspirin to clopidogrel 75 mg/day. I sent a prescription for this to your pharmacy and you should start taking this tomorrow and stop taking the aspirin. - You should continue Crestor at the current dosage. - You should discuss an at home night monitor with your primary care doctor. - You should resume your home blood pressure mediations. - You should hold off on taking your spironolactone until you follow up with your primary care doctor for repeat lab work. We did note the lesion on your parotid gland again on imaging, you should follow up with your primary care doctor for repeat imaging of this. We have requested a follow up appointment with your primary care doctor. If you do not hear from their office in the next day, please call them to make an appointment. Pending Studies at Discharge: No Stand-Alone Forms: [facility], Smoking Cessation, Medications to Prevent Stroke Medications and DC Order Prescriptions: New clopidogrel 75 mg Tablet 75 mg PO QAM 30 Days Qty: 30 0RF Continued amlodipine 2.5 mg tablet 2.5 mg PO DAILY levothyroxine 88 mcg tablet 88 mcg PO QAM lisinopril 10 mg tablet 10 mg PO DAILY metoprolol succinate 200 mg tablet extended release 24 hr 50 mg PO DAILY cetirizine [Zyrtec] 10 mg Tablet 10 mg PO DAILY rosuvastatin 10 mg tablet 10 mg PO HS Held spironolactone 25 mg tablet 12.5 mg PO DAILY Hold Instructions: Hold until follow up with primary care doctor. Discharge Orders: Discharge Order (Routine); Ordered 06/08/23 Ordered By: Catherine Mcguire Admission Data Admit Date/Time: 06/08/23 02:19 Attending Provider: Francesca Bernard Admit Provider: Jesus Rodriguez Primary Care Provider: Tee Carranza Other Providers: Jesus Rodriguez; Leonel Akins Other Interventions: Discharge Summary Assessment (RN) Last Done: 06/08/23 16:13 Supervising Physician Co-Signing Physician Notes Attending Physician Supervision Note: I independently interviewed and examined the patient and verified the hendricks history and physical, reviewed labs and image studies and agree with findings and care plan noted above. Resident Activity Tracking Resident Involvement: Resident Care Provided Care Provided: Adult Hospital Medicine
[2023-06-09] MEDS: STROKE PATIENT DISCHARGE STA (03:33)
[2023-06-09] MEDS: ROSUVASTATIN CALCIUM 10 MG TAB PO SCH (03:33)
[2023-06-09] MEDS ORDERED: CLOPIDOGREL BISULFATE 75 MG TAB PO SCH (09:00)
--- NOTE | 2023-06-12 12:53 | Pharmacy Report ---
Pharmacist Stroke Counseling - Date of Service June 12, 2023 - Scope: Pharmacy has been consulted to provide medication discharge counseling for this patient admitted with transient ischemic attack as per the Pharmacist Discharge Counseling for Stroke Patients Protocol. - Medications on Discharge: Home Medications Medication Instructions Recorded Confirmed levothyroxine 88 mcg tablet 88 mcg PO QAM 02/22/19 06/08/23 lisinopril 10 mg tablet 10 mg PO DAILY 02/22/19 06/08/23 metoprolol succinate 200 mg 50 mg PO DAILY 03/03/22 06/08/23 tablet,extended release 24 hr amlodipine 2.5 mg tablet 2.5 mg PO DAILY 03/07/23 06/08/23 cetirizine 10 mg tablet (Zyrtec) 10 mg PO DAILY 06/08/23 06/08/23 rosuvastatin 10 mg tablet 10 mg PO HS 06/08/23 06/08/23 spironolactone 25 mg tablet 12.5 mg PO DAILY 06/08/23 06/08/23 New Rx's Medication Instructions Recorded clopidogrel 75 mg tablet 75 mg PO QAM 30 days #30 tabs 06/08/23 - Action: The above medications, specifically ones for stroke treatment/prophylaxis, have been reviewed in detail with the patient and/or patient outside industrial sales representative(s) prior to discharge. This includes indication, common adverse reactions, drug inte ractions, and medication administration. Medication counseling has been employed using the teach-back method to ensure understanding. - Outcome: The patient and/or patient outside industrial sales representative(s) have demonstrated understanding of the medications. Additional comments: - Patient confirms that clopidogrel was picked up from the pharmacy and that she has begun to take it. Reviewed ADRs of clopidogrel and when to seek medical attention. No issues w/ the medication reported at time of this phone interview. - Patient also confirms discontinuation of aspirin and that she is holding spironolactone until it can be discussed with her outpatient provider(s). - No barriers to medication compliance identified during telephone conversation. Thank you for allowing pharmacy to be involved in the care of this patient. Please call [phone] with any additional questions
== END 2023-06-08 16:13 | disposition home or self-care (01) | DRG 69 ==
LOC: ED 23:38 → INTOOBSV 06-08 02:19 → SUATTDRO 06-08 02:19 → EDINP 06-08 02:19
DX: I10 Essential (primary) hypertension; Z88.8 Allergy status to other drugs, medicaments and biological substances; E78.5 Hyperlipidemia, unspecified; R47.1 Dysarthria and anarthria; Z88.2 Allergy status to sulfonamides; Z79.890 Hormone replacement therapy; G45.9 Transient cerebral ischemic attack, unspecified; E03.9 Hypothyroidism, unspecified; Z91.048 Other nonmedicinal substance allergy status; I73.9 Peripheral vascular disease, unspecified; Z79.899 Other long term (current) drug therapy; N17.9 Acute kidney failure, unspecified; Z87.891 Personal history of nicotine dependence